=== PATIENT | female | born 1960 | race Caucasian/White ===

== ENCOUNTER 2016-06-03 21:04 | Inpatient (IN) | payer OTHER ==
[~2016-06-03] VITALS: Ht 170.2 cm; Wt 76.9 kg
--- NOTE | 2016-06-03 21:04 | NUR ---
Patient was BIBA at this time from [facility].
[2016-06-03 21:08] VITALS: BP 105/55
--- NOTE | 2016-06-03 21:15 | NUR ---
BIBA C/O SEIZURE AND ALOC , AND AN HOUR AGO, BS 148 MG /DL. UNABLE TO OBTAIN ANY HISTORY FROM PATIENT OR [facility]. [facility] STATE PT HAS HX OF COPD AND SEIZURES. PT WAS HAVING SEIZURES AT HALFWAY AND BROUGHT HERE. SEIZURE PRECAUTIONS IN PLACE. PT HAS LEFT KNEE AMPUTATION. PATIENT POSITIONED FOR COMFORT; HOB ELEVATED; BEDRAILS UP X2; BED DOWN. ER MD MADE AWARE OF PT STATUS.
--- NOTE | 2016-06-03 21:17 | NUR ---
Patient taken to bed 04 via gurney per EMS.
--- NOTE | 2016-06-03 21:37 | NUR ---
Dr. Damon evaluating patient at bedside.
--- NOTE | 2016-06-03 21:40 | NUR ---
RT at bedside/ LAB at bedside.
[2016-06-03] MEDS ORDERED: LORazepam 2 MG/ML VIAL ONE ×2 (21:41→22:26)
--- NOTE | 2016-06-03 21:45 | NUR ---
PT DESATS TO 65%, DR KAT WAS AT BEDSIDE. AIRWAY MAINTAINED THROUGH VENTILATION OF BAGGING SUPPORT. ATIVAN 2 MG IM WAS GIVEN. CENTRAL LINE ATTEMPT WAS MADE AND UNSUCCESSFULL. .
--- NOTE | 2016-06-03 22:00 | NUR ---
RT SIDE CHEST PIV STARTED AND INFUSING WITHOUT PROBLEMS.
[2016-06-03] MEDS ORDERED: LORazepam 2 MG/ML VIAL IM/IVP ONE (22:15)
--- NOTE | 2016-06-03 22:15 | NUR ---
2 MG IV ATIVAN GIVEN PER DR KAT
[2016-06-03] MEDS ORDERED: LORazepam 2 MG/ML VIAL IVP ONE (22:25)
--- NOTE | 2016-06-03 22:30 | NUR ---
SUCCINYL CHOLINE GIVEN, PT INTUBATED WITHOUT PROBLEMS.
--- NOTE | 2016-06-03 22:30 | NUR ---
PT INTUBATED WITH 7.5 AND MARKED AT 22 AT THE LIP
--- NOTE | 2016-06-03 22:30 | NUR ---
XRAY at bedside.
--- NOTE | 2016-06-03 22:45 | NUR ---
PT PLACE ON VENTILATOR
--- NOTE | 2016-06-03 23:01 | NUR ---
Patient going to CT via cassandra amador.
[2016-06-03] MEDS ORDERED: PHENobarbital 65 MG/ML VIAL IV ONE (23:10)
[2016-06-03] MEDS ORDERED: PHENobarbital 130 MG/ML VIAL ONE (23:45)
[2016-06-03] MEDS ORDERED: ONDANSETRON 4 MG/2 ML VIAL IVP PRN (23:50)
[2016-06-03] MEDS ORDERED: ACETAMINOPHEN 325 MG TAB PO PRN (23:50)
[2016-06-03] MEDS ORDERED: PHENobarbital 65 MG/ML VIAL ONE (23:51)
[2016-06-04] VITALS (23 sets, daily range): BP systolic 83–139; BP diastolic 44–87
[2016-06-04] MEDS ORDERED: LORazepam 2 MG/ML VIAL IVP PRN
[2016-06-04] MEDS ORDERED: NACL 0.9% 1,000 ML IV ONE (00:10)
--- NOTE | 2016-06-04 00:30 | NUR ---
CALLED OUTPT PHARMACY, PHENABARBITAL IVPB STARTING INFUSING OVER 30 MINUTES WITHOUT PROBLEMS.
[2016-06-04] MEDS: ALBUTEROL SULFATE/IPRATROPIU 3 ML SOL IH SCH ×4 (00:35→19:19)
--- NOTE | 2016-06-04 01:00 | NUR ---
INDWELLING RILEY PLACED
--- NOTE | 2016-06-04 01:35 | NUR ---
CURRENT VENTILATOR SETTINGS: ASSIST: 12/500, 5 PEEP.
--- NOTE | 2016-06-04 02:05 | NUR ---
Patient taken to ICU via gurney bassam amador/RN/RT.
--- NOTE | 2016-06-04 02:10 | NUR ---
RECEIVED PATIENT VIA GURNEY FROM ER. PATIENT IS SLEEPING IN BED. NO SIGNS OF RESPIRATORY DISTRESS OR SOB NOTED. PATIENT IS ETT TO VENT WITH SETTINGS OF FIO2 40%, TIDAL VOLUME 500, A/C 12, AND PEEP 5. BREATH SOUNDS ARE CLEAR UPON AUSCULTATION AND BOWEL SOUNDS ARE ACTIVE. THERE IS A #22 IN THE UPPER RIGHT CHEST RECEIVING NORMAL SALINE BOLUS. THERE IS A NGT IN THE PATIENT'S RIGHT NARES. THERE IS A RILEY CATHETER PRESENT DRAINING TO GRAVITY WITH MODERATE AMOUNT OF LIGHT COLOR SIXTO URINE NOTED. PATIENT'S LEFT LEG IS AMPUTATED BELOW THE KNEE. THERE IS A BRACE ON THE PATIENT'S RIGHT LEG. MRSA SWAB COLLECTED. HOB AT 30 DEGREES WITH BED IN LOW POSITION. CONTINUE TO MONITOR PATIENT. Addendum: 06/04/16 at 0258 by Ash Sanchez RN LEFT ABOVE THE KNEE AMPUTATION, NOT BELOW THE KNEE.
--- NOTE | 2016-06-04 02:10 | NUR ---
PT TRANSFERRED TO ICU 3 PLACED BACK ON VENT WITH SAME SETTINGS
[2016-06-04] MEDS: NACL 0.9% 1,000 ML IV SCH ×4 (02:31→20:47)
--- NOTE | 2016-06-04 02:45 | NUR ---
VENT CHECK, NO SXN REQUIRED AT THIS TIME, VENT SETTINGS AC12 VT 500 PEEP 5 FIO2 40% ALARMS ON AND FUNCTIONING PROPERLY AMBU BAG AT BEDSIDE PT IS INTUBATED WITH 7.5 ET TUBE SECURED WITH ANCHOR FAST AT 22 CM AND SKIN INTEGRITY IS INTACT
--- NOTE | 2016-06-04 03:50 | NUR ---
DR. JOSI LOPEZ ON UNIT TO SEE PATIENT.
--- NOTE | 2016-06-04 05:05 | NUR ---
VENT CHECK, SXN PT FOR C&S MODERATE AMT OF YELLOW SECRETIONS, CHANGED HME PT IS RESTING
--- NOTE | 2016-06-04 05:30 | NUR ---
PATIENT REPOSITIONED FOR COMFORT.
--- NOTE | 2016-06-04 05:32 | NUR ---
PATIENT ATTEMPTING TO PULL OUT ENDOTRACHEAL TUBE. PAGED DR. JOSI LOPEZ. WILL WAIT FOR CALL BACK.
--- NOTE | 2016-06-04 05:34 | NUR ---
SPOKE TO DR. JOSI LOPEZ REGARDING PATIENT ATTEMPTING TO PULL OUT ENDOTRACHEAL TUBE. DR. LOPEZ ORDERED TO PUT ON RESTRAINTS AND WILL PUT IN ORDERS FOR SEDATION. WILL FOLLOW UP WITH NEW ORDERS.
[2016-06-04] MEDS ORDERED: MIDAZOLAM MDV 50 MG in NACL 0.9% 40 ML IV PRN (05:45)
--- NOTE | 2016-06-04 06:03 | NUR ---
COMMERCIAL REVIEW APPRAISER AT BEDSIDE FOR SCHEDULED LAB DRAWS.
--- NOTE | 2016-06-04 06:28 | NUR ---
VENT CHECK, I\L TX GIVEN WITH DUONEB 3ML WITH NO ADVERSE REACTION POST TX B\S ARE CLEAR AND PT IS RESTING WITH NO SIGNS OF DISTRESS NOTED AT THIS TIME
[2016-06-04] MEDS: LEVOFLOXACIN 500 MG/D5W PREMIX 100 ML IV SCH (06:40)
--- NOTE | 2016-06-04 07:14 | NUR ---
PATIENT IN STABLE CONDITION. ENDORSED CONTINUITY OF CARE TO PATRICE MARTINEZ.
--- NOTE | 2016-06-04 07:15 | NUR ---
RECEIVED REPORT FROM MICHELLE MEADE AT PATIENT BEDSIDE. PT IS LETHARGIC, PERRL, NON-VERBAL, ETT TO VENT WITH FIO2 40%, TV 500, AC 12, PEEP 5, NO S/S OF ACUTE RESP DISTRESS NOTED AT THIS TIME, CLEAR LUNG SOUNDS. SR ON SWIMMING POOL INSTALLER, SOFT ABD WITH ACTIVE BOWL SOUNDS, NGT TO RIGHT NARES, CURRENTLY ON NPO, PLACEMENT CHECKED WITH 2 RNS, 0 RESIDUAL. PERIPHERAL LINE TO RIGHT UPPER CHEST, 22GA, RUNNING NS AT 120 ML/HR, RILEY CATHETER IN PLACE DRAINING CLEAR YELLOW URINE TO GRAVITY. AFEBRILE, SKIN IS WARM AND DRY TO TOUCH, OPEN WOUND TO SACRUM AREA (SEE WOUND PICTURES), LEFT AKA, AND RLE DVT NOTED. SEIZURE PRECAUTION, ASPIRATION PRECAUTION AND SAFETY PRECAUTIONS MAINTAINED, RESTRAINED TO BOTH ARMS ORDERED, ORAL CARE PROVIDED, PT TOLERATED WELL, VSS, WILL CONTINUE TO CLOSELY MONITOR.
--- NOTE | 2016-06-04 08:00 | NUR ---
NO CHANGE OF CONDITION AT THIS TIME, POSITION CHANGED FOR OFF LOAD PRESSURE. VSS.
--- NOTE | 2016-06-04 08:35 | NUR ---
PT IS SHAKING WITH EYES BLINKING, ATIVAN GIVEN ORDERED, SYMPTOM DECREASED.
--- NOTE | 2016-06-04 08:51 | NUR ---
RECEIVED PT 0N MARCUS ON A\C 12 VT500 PEEP5 FIO2 40 ALARMS ARE 0 Addendum: 06/04/16 at 0909 by Kellen Salvador RT ON AND FUNCTIONAL BMV HOB PTD ET TUBE SIZE 7.5 IS SECURE 22 CM LIP ANCHOR FAST IN PLACE BS CLEAR AIRWAY IS PATENT PT IN HF QUIET NO DISTRESS NOTED VENT PLUGGED INTO RED OUTLET RT HAND RESTRAINED
--- NOTE | 2016-06-04 10:00 | NUR ---
NO CHANGE OF CONDITION AT THIS TIME, POSITION CHANGED FOR OFF LOAD PRESSURE. VSS.
--- NOTE | 2016-06-04 10:50 | NUR ---
VENT CHECK BS DIMINISHED I\L LAVAGE AND SX SM YELLOW
--- NOTE | 2016-06-04 11:15 | NUR ---
DR. LOPEZ AND DR. GOMEZ CAME TO EVALUATE PT AT BEDSIDE.
[2016-06-04] MEDS ORDERED: LEVOTHYROXINE 0.112 MG TAB PO SCH (11:30)
[2016-06-04] MEDS ORDERED: BISACODYL 10 MG SUPP RC PRN (11:30)
[2016-06-04] MEDS ORDERED: MAGNESIUM OXIDE 400 MG TAB PO SCH (12:00)
--- NOTE | 2016-06-04 12:00 | NUR ---
NO CHANGE OF CONDITION AT THIS TIME, ORAL CARE PROVIDED, POSITION CHANGED FOR OFF LOAD PRESSURE. VSS
[2016-06-04] MEDS ORDERED: PANTOPRAZOLE 40 MG INJ VIAL IVP SCH (12:01)
--- NOTE | 2016-06-04 12:30 | NUR ---
X-RAY AT BEDSIDE, AND KUB DONE AT BEDSIDE.
[2016-06-04] MEDS ORDERED: MAGNESIUM OXIDE 400 MG TAB NG SCH (12:48)
--- NOTE | 2016-06-04 12:50 | NUR ---
PT IS HAVING SEIZURE WITH TREMOR ON BOTH ARM LASTED FOR 1 MIN, ATIVAN GIVEN, PT RELAXED, TREMOR SUBSIDE AFTER ATIVAN GIVEN, CONTINUE TO MONITOR. O2 AT 100%.
[2016-06-04] MEDS: LORazepam 2 MG/ML VIAL IVP PRN ×2 (12:55→22:21)
--- NOTE | 2016-06-04 13:06 | NUR ---
DR. MADISON NOTIFIED FOR NEURO CONSULT.
[2016-06-04] MEDS: PHENYTOIN 100 MG/4 ML UDC GT SCH ×2 (13:35→16:27)
--- NOTE | 2016-06-04 13:50 | NUR ---
PT IS HAVING SEIZURE WITH TREMOR, SAME LAST EPISODE, LASTED FOR 30 SEC, DILANTIN AND PHENOBARBITAL GIVEN, PT RELAXED, TREMOR SUBSIDE, O2 AT 100%, VSS. CONTINUE ON SAME SETTING OF VENTILATOR.
--- NOTE | 2016-06-04 14:15 | NUR ---
NO CHANGE OF CONDITION AT THIS TIME, POSITION CHANGED FOR OFF LOAD PRESSURE. VSS.
--- NOTE | 2016-06-04 15:00 | NUR ---
CRITICAL US VENOUS DOPP RESULT FOR LOWER EXTREMITY REPORTED TO DR. GOMEZ. HE SAID HE WILL COME TO SEE THE PATIENT.
[2016-06-04] MEDS ORDERED: VITAMIN C500 MG/5 M NG (15:04)
[2016-06-04] MEDS ORDERED: TYLENOL650 MG RC (15:09)
[2016-06-04] MEDS ORDERED: DULCOLAX10 M2 RC (15:11)
[2016-06-04] MEDS ORDERED: LASIX40 MG PO (15:12)
[2016-06-04] MEDS ORDERED: FERROUS SULFAT325 MG PO (15:12)
[2016-06-04] MEDS ORDERED: NEURONTIN300 MG PO (15:13)
[2016-06-04] MEDS ORDERED: NORCO 5/325 MG1 TAB PO (15:14)
[2016-06-04] MEDS ORDERED: SYNTHROID0.125 MG PO (15:15)
[2016-06-04] MEDS ORDERED: MELATONIN3 MG PO (15:16)
[2016-06-04] MEDS ORDERED: REMERON15 MG PO (15:17)
[2016-06-04] MEDS ORDERED: SINGULAIR10 MG PO (15:18)
[2016-06-04] MEDS ORDERED: MS-CONTIN30 MG PO (15:20)
[2016-06-04] MEDS ORDERED: MULTI-VITAMINS1 TAB PO (15:20)
[2016-06-04] MEDS ORDERED: PRILOSEC OTC20 MG PO (15:21)
[2016-06-04] MEDS ORDERED: DILANTIN100 MG PO (15:22)
--- NOTE | 2016-06-04 15:22 | NUR ---
VENT CHECK BS CLEAR AIRWAY IS PATENT
[2016-06-04] MEDS ORDERED: VITAMIN C500 M8 PO (15:26)
--- NOTE | 2016-06-04 16:00 | NUR ---
POSITION CHANGED FOR OFF LOAD PRESSURE, PM CARE PROVIDED, ORAL CARE PROVIDED, PT IS IN STABLE CONDITION AT THIS TIME. VSS.
[2016-06-04] MEDS: MORPHINE SULFATE 2 MG/ML SYR IVP PRN (16:27)
--- NOTE | 2016-06-04 18:00 | NUR ---
NO CHANGE OF CONDITION AT THIS TIME, POSITION CHANGED FOR OFF LOAD PRESSURE. VSS.
--- NOTE | 2016-06-04 19:15 | NUR ---
REPORT GIVEN TO MICHELLE EVANS FOR CONTINUITY OF CARE. PT IS IN STABLE CONDITION, VSS. AT THIS TIME.
--- NOTE | 2016-06-04 19:19 | NUR ---
RECEIVED ON [employer] R 860 VENTILATOR PLUGGED INTO RED OUTLET TOLERATING WELL WITHOUT ADVERSE REACTIONS NOTED TO AN ENDOTRACHEAL TUBE 7.5 SECURED AT 22cm MIDLINE WIT AN ANCHOR FAST CUFF PRESSURE CHECKED FOR MOV AMBU BAG NOTED AT HOB LOC ASLEEP BREATH SOUNDS RHONCHI BILATERAL WITH GOOD CHEST RISE ENDOTRACHEAL SUCTION FOR LARGE THIN YELLOW SECRETIONS AIRWAY PATENT
--- NOTE | 2016-06-04 19:20 | NUR ---
RECEIVED PATIENT VIA GURNEY FROM ER. PATIENT IS SLEEPING IN BED. NO SIGNS OF RESPIRATORY DISTRESS OR SOB NOTED. PATIENT IS ETT TO VENT WITH SETTINGS OF FIO2 40%, TIDAL VOLUME 500, A/C 12, AND PEEP 5. RHONCHI HEARD UPON AUSCULTATION AND BOWEL SOUNDS ARE ACTIVE. VITALS ARE WNL. THERE IS A #22 IN THE UPPER RIGHT CHEST RECEIVING NORMAL SALINE AT 120 ML/HR. THERE IS A NGT IN THE PATIENT'S RIGHT NARES. THERE IS A RILEY CATHETER PRESENT DRAINING TO GRAVITY WITH MODERATE AMOUNT OF YELLOW COLOR URINE NOTED. PATIENT'S LEFT LEG IS AMPUTATED ABOVE THE KNEE. RESPIRATORY THERAPIST AT BEDSIDE. HOB AT 30 DEGREES WITH BED IN LOW POSITION. CONTINUE TO MONITOR PATIENT
--- NOTE | 2016-06-04 20:13 | NUR ---
DR. VIDAL PRESENT ON UNIT TO SEE PATIENT.
[2016-06-04] MEDS ORDERED: HEPARIN PER PHARMACY MC PRN (20:20)
[2016-06-04] MEDS ORDERED: hePARIN / DEXT 5% PREMIX 250 ML IV SCH (20:20)
[2016-06-04] MEDS ORDERED: LORazepam 2 MG/ML VIAL IVP SCH (20:25)
--- NOTE | 2016-06-04 20:33 | NUR ---
DR. JOSI LOPEZ AT BEDSIDE TO EXPLAIN INDICATIONS AND BENEFITS FOR CENTRAL LINE INSERTION. PATIENT REFUSED CENTRAL LINE INSERTION AT THIS TIME. PATIENT NOTICEABLE AGITATED AND ANXIOUS.
--- NOTE | 2016-06-04 20:36 | NUR ---
DR. JOSI LOPEZ ORDERED 1MG IVP ONE TIME TO BE GIVEN NOW FOR ANXIETY. ADMINISTERED ATIVAN IMG IVP PER DR. LOPEZ'S ORDERS. CONTINUE TO MONITOR PATIENT.
[2016-06-04] MEDS: MONTELUKAST SODIUM 10 MG TAB NG SCH (21:22)
[2016-06-04] MEDS: MIRTAZAPINE 15 MG TAB NG SCH (21:22)
[2016-06-04] MEDS: MAGNESIUM OXIDE 400 MG TAB NG SCH (21:22)
--- NOTE | 2016-06-04 21:27 | NUR ---
PATIENT REPOSITIONED FOR COMFORT. CONTINUE TO MONITOR.
--- NOTE | 2016-06-04 21:44 | NUR ---
IRRITABLE ON OCCASION BREATH SOUNDS CLEAR BILATERAL WITH GOOD AERATION THROUGHOUT
--- NOTE | 2016-06-04 23:34 | NUR ---
ASLEEP NO EVIDENCE OF RESPIRATORY DISTRESS NOTED BREATH SOUNDS C;EAR BI;ATERAL WITH GOOD AERATION THROUGHOUT AIRWAY PATENT
[2016-06-05] VITALS (107 sets, daily range): BP systolic 90–167; BP diastolic 41–97
--- NOTE | 2016-06-05 | NUR ---
PROPOFOL DRIP INITIATED AT 0.3MCG/KG/MIN FOR RASS -3 FOR MODERATE SEDATION. CONTINUE TO MONITOR.
--- NOTE | 2016-06-05 00:06 | NUR ---
PATIENT REPOSITIONED FOR COMFORT. NO S/S OF SOB NOTED. CONTINUE TO MONITOR PATIENT.
--- NOTE | 2016-06-05 00:12 | NUR ---
SOFT WRIST RESTRAINTS REMOVED. CHARGE NURSE SHAKIR RN IS AWARE. CONTINUE TO MONITOR PATIENT.
[2016-06-05] MEDS: MORPHINE SULFATE 2 MG/ML SYR IVP PRN (00:39)
[2016-06-05] MEDS: ALBUTEROL SULFATE/IPRATROPIU 3 ML SOL IH SCH ×4 (01:28→19:24)
--- NOTE | 2016-06-05 01:28 | NUR ---
RESPIRATORY THERAPIST AT BEDSIDE TO ADMINISTER SCHEDULED BREATHING TX. PATIENT IS ATTEMPTING TO PULL OUT NGT AND ETT TUBES. SOFT WRIST RESTRAINTS REAPPLIED. CHARGE NURSE SHAKIR RN MADE AWARE. CONTINUE TO MONITOR.
--- NOTE | 2016-06-05 01:28 | NUR ---
IRRITABLE BREATH SOUNDS CLEAR BILATERAL GOOD CHEST RISE SATURATION 100% ON FIO2 OF 40% POST HHN THERAPY TITRATED FIO2 TO 35% NERA/RN NOTIFIED
--- NOTE | 2016-06-05 03:23 | NUR ---
NO DISTRESS NOTED GOOD CHEST RISE
--- NOTE | 2016-06-05 04:52 | NUR ---
MORNING CARE RENDERED. BED BATH PROVIDED. CHANGED LINENS AND GOWN. PATIENT REPOSITIONED FOR COMFORT. HOB AT 30 DEGREES WITH BED IN LOW POSITION. CONTINUE TO MONITOR PATIENT.
[2016-06-05] MEDS: NACL 0.9% 1,000 ML IV SCH ×4 (05:15→23:26)
--- NOTE | 2016-06-05 05:23 | NUR ---
VAP ORAL CARE RENDERED. NO SIGNS OF SOB NOTED. HOB AT 30 DEGREES WITH BED IN LOW POSITION. CONTINUE TO MONITOR PATIENT.
--- NOTE | 2016-06-05 05:38 | NUR ---
NO SOB NOTED GOOD CHEST RISE
[2016-06-05] MEDS: LEVOTHYROXINE 0.112 MG TAB NG SCH (05:44)
--- NOTE | 2016-06-05 05:45 | NUR ---
SATURATION 100% ON FIO2 OF 35% TITRATED FIO2 TO 30% NERA/RN AWARE
[2016-06-05] MEDS: PROPOFOL 1000 MG/100 ML PREMIX 100 ML IV PRN ×5 (05:58→20:40)
[2016-06-05] MEDS: LEVOFLOXACIN 500 MG/D5W PREMIX 100 ML IV SCH (06:28)
--- NOTE | 2016-06-05 06:47 | NUR ---
REC'D PT ON CARESCAPE VENT SETTINGS AC12 VT500 PEEP 5 FIO2 30% ALARMS ON AND FUNCTIONING PROPERLY, AMBU BAG AT SIDE OF VENTILATOR, VENTILATOR IS PLUGGED INTO RED OUTLET, I\L TX GIVEN WITH DUONEB 3ML WITH NO ADVERSE REACTION POST TX, SXN PT MODERATE AMT OF THIN YELLOW SECRETIONS, B\S ARE CLEAR AND PT IS ORALLY INTUBATED WITH ET TUBE 7.5 SECURED WITH ANCHOR FAST AT 22 CM AT MIDLINE OF MOUTH AND SKIN INTEGRITY IS INTACT
--- NOTE | 2016-06-05 07:19 | NUR ---
PATIENT IN STABLE CONDITION. NO SIGNS OF DISTRESS NOTED. ALL NEEDS ATTENDED TO DURING SHIFT. ENDORSED CONTINUITY OF CARE MONI MARTINEZ.
--- NOTE | 2016-06-05 07:22 | NUR ---
RECEIVED REPORT FROM MICHELLE EVANS. NO SIGNS OF ACUTE DISTRESS AT THIS TIME, FLACC 0. PT IS SEDATED .PT IS ETT TO VENT. FIO2: 30%, AC: 12, TV: 500, PEEP: 5. IV TO RIGHT CHEST #22, PATENT AND INTACT. PT IS ON PROPOFOL AT 40 MCG/KG/MIN. RASS -3. NGT TO RIGHT NARE, CLAMPED. RILEY CATHETER IN PLACE DRAINING TO GRAVITY DRAINAGE BAG. WOUND NOTED TO SACRUM. PT HAS LEFT AKA AND BOOT TO RIGHT LOWER EXTREMITY. PT IS ON SEIZURE PRECAUTIONS WITH BED IN LOWEST POSITION AND SIDE RAILS UP, PADDED. PT IS CURRENTLY SINUS RHYTHM ON THE MONITOR. SOFT MITTENS AND SOFT RESTRAINTS IN PLACE TO BILATERAL UPPER EXTREMITIES X2. WILL CONTINUE TO MONITOR.
--- NOTE | 2016-06-05 07:28 | NUR ---
PATIENT HAS BEEN SCREENED AND CATEGORIZED HIGH NUTRITION RISK. PATIENT WILL BE SEEN WITHIN 1-2 DAYS OF ADMISSION. 06/04/16-06/05/[address]
[2016-06-05] MEDS: LORazepam 2 MG/ML VIAL IVP PRN (07:41)
--- NOTE | 2016-06-05 07:48 | NUR ---
PT AGITATED, ADMINISTERED ATIVAN PRN ORDERED. WILL CONTINUE TO MONITOR.
[2016-06-05] MEDS ORDERED: PROBIOTIC SCREEN 1 EA MISC MC PRN (08:15)
--- NOTE | 2016-06-05 08:16 | NUR ---
DR. MADISON IN TO SEE PT. WILL FOLLOW UP ON ORDERS.
[2016-06-05] MEDS: PHENYTOIN 100 MG/4 ML UDC GT SCH ×3 (08:29→17:25)
[2016-06-05] MEDS: MAGNESIUM OXIDE 400 MG TAB NG SCH (08:30)
[2016-06-05] MEDS: GABAPENTIN 300 MG CAP NG SCH ×3 (08:30→17:26)
[2016-06-05] MEDS: PANTOPRAZOLE 40 MG INJ VIAL IVP SCH (08:30)
--- NOTE | 2016-06-05 08:42 | NUR ---
PT TOLERATED MEDS WELL.
[2016-06-05] MEDS ORDERED: SUCCINYLCHOLINE CHLORIDE 200 MG/10 ML VIAL IVP ONE (09:15)
[2016-06-05] MEDS ORDERED: INTUBATION KIT MC ONE (09:15)
--- NOTE | 2016-06-05 09:19 | NUR ---
VENT CHECK, NO SXN NEEDED AT THIS TIME, AIRWAY IS PATENT AND PT IS SEDATED WITH MITTENS AND RESTRAINS ON BOTH HANDS, NO SIGNS OF DISTRESS NOTED AT THIS TIME
--- NOTE | 2016-06-05 09:54 | NUR ---
DR. MROENO IN TO SEE PT. WILL FOLLOW UP ON ORDERS.
--- NOTE | 2016-06-05 10:47 | NUR ---
TECH PRESENT AT BEDSIDE PERFORMING EEG.
--- NOTE | 2016-06-05 10:51 | NUR ---
VENT CHECK, SXN PT LARGE AMT OF YELLOW SECRETIONS PT IS AGITATED AND GETTING READY TO HAVE EEG DONE .
--- NOTE | 2016-06-05 11:15 | NUR ---
FAXED INITIAL REVIEW TO KAREN JOHANSEN [phone] PHONE [phone] FAXED INITIAL REVIEW TO [facility] [phone] PHONE CHARLIE DELGADO [phone]
--- NOTE | 2016-06-05 12:19 | NUR ---
06/05/16 RD INITIAL ASSESSMENT COMPLETED PLEASE REFER TO NUTRITION ASSESSMENT UNDER CARE ACTIVITY FOR ESTIMATED NUTRITIONAL NEEDS. RD RECOMMENDATIONS: 1. CONTINUE NPO MEDICALLY APPROPRIATE PER MD 2. WHEN MEDICALLY APPROPRIATE CONSIDER BEGIN NUTRITION SUPPORT NUTREN PULMONARY AT 15 ML/HR AND ADVANCE 10 ML Q6H TOLERATED TO GOAL OF 55 ML/HR --AT GOAL OF 55 ML/HR, THIS WILL PROVIDE 1320 ML TOTAL VOLUME, 1980 KCAL, 90 GM PROTEIN AND MEET 100% OF PT ESTIMATED KCAL AND PROTEIN NEEDS 3. SHOULD PT BE WEANED OFF OF VENT, CONSIDER ADVANCE DIET SLOWLY AND TOLERATED TO REGULAR. 4. RD WILL F/U 2-3 DAYS; HIGH RISK. THAI ANDRE RD
--- NOTE | 2016-06-05 13:20 | NUR ---
VENT CHECK, I\L TX GIVEN WITH DUONEB 3ML WITH NO ADVERSE REACTION POST TX B\S ARE CLEAR AND SXN PT SMALL AMT OF YELLOW SECRETIONS
--- NOTE | 2016-06-05 13:43 | NUR ---
PT TOLERATED MEDS WELL.
--- NOTE | 2016-06-05 15:01 | NUR ---
VENT CHECK, SXN PT SMALL AMT OF YELLOW SECRETIONS, B\S ARE CLEAR AND PT IS SLEEPING
--- NOTE | 2016-06-05 16:49 | NUR ---
CHECKED ON PT. NO SIGNS OF ACUTE DISTRESS AT THIS TIME, FLACC 0. WILL CONTINUE TO MONITOR.
--- NOTE | 2016-06-05 16:58 | NUR ---
VENT CHECK, NO SXN REQUIRED AT THIS TIME, B\S ARE CLEAR AND PT IS SLEEPING WITH NO SIGNS OF DISTRESS NOTED AT THIS TIME
--- NOTE | 2016-06-05 17:40 | NUR ---
PT TOLERATED MEDS WELL.
--- NOTE | 2016-06-05 18:00 | NUR ---
DR. ROLLINS IN TO SEE PT. WILL FOLLOW UP ON ORDERS.
--- NOTE | 2016-06-05 19:32 | NUR ---
ENDORSED CARE TO MICHELLE TROTTER. PT IN STABLE CONDITION.
--- NOTE | 2016-06-05 19:33 | NUR ---
RECEIVED REPORT LAURE MONTENEGRO RN. INITIAL ASSESSMENT COMPLETED. PT IS ON ETT TO VENT WITH VENT SETTING ORDERED. NGT TO RIGHT NARE, PATENT, INTACT. IV ACCESS AT RIGHT CHEST 22G, PATENT, INTACT. WITH BUE SOFT WRIST RESTRAINTS ORDERED, LEFT AKA, WITH BOOTS AT RIGHT LEG. RILEY CATH IN PLACE. BED IN LOW POSITION, SAFETY MEASURE ENSURE. CONTACT ISOLATION MAINTAINED.
[2016-06-05] MEDS: MONTELUKAST SODIUM 10 MG TAB NG SCH (20:57)
[2016-06-05] MEDS: MIRTAZAPINE 15 MG TAB NG SCH (20:57)
--- NOTE | 2016-06-05 21:10 | NUR ---
DUE MEDS GIVEN ORDERED. WILL CONTINUE TO MONIOTR.
[2016-06-06] VITALS (106 sets, daily range): BP systolic 72–133; BP diastolic 27–79
--- NOTE | 2016-06-06 00:45 | NUR ---
NGT FEEDING STARTED WITH SETTING ORDERED, IN PLACE, NO RESIDUAL AT THIS TIME. WILL CONTINUE TO [id number].
[2016-06-06] MEDS: PROPOFOL 1000 MG/100 ML PREMIX 100 ML IV PRN ×5 (00:53→19:47)
[2016-06-06] MEDS: ALBUTEROL SULFATE/IPRATROPIU 3 ML SOL IH SCH ×4 (01:31→19:39)
[2016-06-06] MEDS: ACETAMINOPHEN 650 MG/20.3 ML UDC PO PRN (02:40)
--- NOTE | 2016-06-06 02:40 | NUR ---
PT FEBRILE T 100.5, TYLENOL GIVEN ORDERED. COOLING MEASURES APPLIED. WILL CONTINUE TO MONITOR.
--- NOTE | 2016-06-06 04:00 | NUR ---
T= 99.2. WILL CONTINUE TO MONITOR.
--- NOTE | 2016-06-06 05:30 | NUR ---
MORNING CARE DONE. PT TOLERATED WELL. NO SOB/NO SIGNS OF DISTRESS AT THIS TIME.
[2016-06-06] MEDS: LEVOFLOXACIN 500 MG/D5W PREMIX 100 ML IV SCH (06:24)
[2016-06-06] MEDS: LEVOTHYROXINE 0.112 MG TAB NG SCH (06:24)
--- NOTE | 2016-06-06 06:52 | NUR ---
RECEIVED PT ON CARESCAPE ON A\C 12 VT500 PEEP5 FIO2 30 ALARMS ARE ON AND FUNCTIONAL PTS ET TUBE SIZE 7.5 IS SECURE [address] FAST IN PLACE BS CLEAR PT IN HF ASLEEP PT HANDS RESTRAINED BMV HOB I\L HHN GIVEN WITH 3 MG DUONEB VENT PLUGGED INTO RED OUTLET
--- NOTE | 2016-06-06 06:55 | NUR ---
DR. LANZA AT BEDSIDE. DR. LANZA AWARE OF LAB RESULTS. NO ORDERS AT THIS TIME.
[2016-06-06] MEDS ORDERED: POTASSIUM CHLORIDE 10 MEQ TABER PO ONE (07:00)
--- NOTE | 2016-06-06 07:14 | NUR ---
CALLED DR. ROLLINS, AWARE OF THE LAB RESULTS. HE SAID HE WILL PUT IN ORDERS. REPORT GIVEN TO MICHELLE MONTENEGRO FOR CONTINUITY OF CARE.
--- NOTE | 2016-06-06 07:18 | NUR ---
RECEIVED REPORT FROM MICHELLE TROTTER. NO SIGNS OF ACUTE DISTRESS AT THIS TIME, FLACC 0. PT IS SEDATED. IV TO RIGHT CHEST #22, PATENT AND INTACT. PT IS ON PROPOFOL DRIP AT 40 MCG/KG/MIN. NGT TO RIGHT NARE TO TUBE FEEDING IN PLACE AND SECURED. PT IS ETT TO VENT. FIO2: 30%, AC: 12, TV: 500, PEEP: 5. PT HAS LEFT AKA, BOOT TO RIGHT LOWER EXTREMITY. WOUND TO SACRUM NOTED. PT IS ON BILATERAL SOFT WRIST RESTRAINTS WITH MITTENS IN PLACE. PT IS CURRENTLY SINUS RHYTHM ON THE MONITOR. PT IS ON CONTACT ISOLATION WITH SIGNS POSTED. SAFETY PRECAUTIONS IN PLACE WITH BED IN LOWEST POSITION AND SIDE RAILS UP. CALL LIGHT WITHIN REACH. WILL CONTINUE TO MONITOR.
[2016-06-06] MEDS ORDERED: POTASSIUM CHLORIDE 20% 40 MEQ/15 ML UDC NG SCH (07:30)
[2016-06-06] MEDS ORDERED: MAG SULF 2000 MG/WATER PREMIX 50 ML IV SCH (08:00)
--- NOTE | 2016-06-06 08:01 | NUR ---
DR. MADISON IN TO SEE PT. WILL FOLLOW UP ON ORDERS.
[2016-06-06] MEDS ORDERED: MAGNESIUM OXIDE 400 MG TAB GT SCH (08:30)
[2016-06-06] MEDS: LACTOBACILLUS RHAMNOSUS GG 1 EACH CAP PO SCH (08:48)
[2016-06-06] MEDS: GABAPENTIN 300 MG CAP NG SCH ×3 (08:48→16:52)
[2016-06-06] MEDS: PANTOPRAZOLE 40 MG INJ VIAL IVP SCH (08:48)
[2016-06-06] MEDS: PHENYTOIN 100 MG/4 ML UDC GT SCH ×3 (08:48→16:51)
[2016-06-06] MEDS: NACL 0.9% 1,000 ML IV SCH ×3 (08:49→17:54)
[2016-06-06] MEDS ORDERED: PHENYTOIN IV ONE (08:50)
[2016-06-06] MEDS ORDERED: NACL 0.9% IV ONE (08:50)
--- NOTE | 2016-06-06 09:06 | NUR ---
VENT CHECK BS CLEAR AIRWAY IS PATENT
--- NOTE | 2016-06-06 09:09 | NUR ---
CHECKED TUBE FEEDING RESIDUAL: NONE NOTED. ADMINISTERED MEDICATION ORDERED. PT TOLERATED WELL. HEPARIN HELD PER DR. ROLLINS.
--- NOTE | 2016-06-06 09:52 | NUR ---
DR. MORENO IN TO SEE PT. WILL FOLLOW UP ON ORDERS.
--- NOTE | 2016-06-06 10:30 | NUR ---
WOUND CARE EVALUATION NOTES: REASON FOR EVALUATION: DECUBITUS ULCER SACRAL COMPLETE SKIN ASSESSMENT DONE ON THIS 55 Y/O FEMALE PATIENT [facility], WITH INITIAL DIAGNOSIS OF S/P EPILEPTICUS. PAST MEDICAL HISTORY INCLUDE SEIZURE DISORDER, HYPOTHYROIDISM, CVA WITH RIGHT HEMIPARESIS, PERIPHERAL NEUROPATHY AND PERIPHERAL VASCULAR DISEASE. ALL ABOVE INFORMATION WAS OBTAINED FROM THE ADMISSION H&P. LABS ARE WBC 8.2, H/H 10.1/30.6, GLUCOSE 139, ALBUMIN 3.8, PT/INR 10.1/1.1 AND PTT 26.6. CURRENT MEDS INCLUDE HEPARIN, ATIVAN, LEVOFLOXACIN AND MORPHINE. PATIENT IS AWAKE, CONFUSED, BUT ABLE TO FOLLOW SIMPLE COMMANDS. ON ETT TO VENT. FC 14FR PATENT AND INTACT TO SIXTO COLORED URINE IN MODERATE AMOUNT. SKIN WARM TO TOUCH WNL, TOENAILS ARE THICKENED, NO EDEMA, NO HAIR GROWTH, DRY AND FLAKY SKIN AND FAINT PEDAL PULSE ON THE RIGHT. LEFT AKA WITH SCARRING NOTED. NEEDS ASSISTANCE IN TURNING. INITIAL PLAN OF CARE AND PRESSURE PREVENTIVE MEASURES DISCUSSED, ABLE TO DEMONSTRATE UNDERSTANDING BY NODDING HER HEAD. INTEGUMENTARY: SACRALCOCCYX - ST IV - 20% THIN YELLOW AND 80% PALE RED. PW RED. RLE - VENOUS STASIS DERMATITIS - DRY AND FLAKY RIGHT ALL TOES - FUNGAL LIKE TOENAILS BUE - ECCHYMOSIS - SCATTERED PURPLE RECOMMENDATIONS: -CLEANSE SACRALCOCCYX WITH WOUND CLEANSER, PAT DRY, APPLY THERAHONEY GEL, COVER WITH GAUZE AND DRY DRESSING Q DAY AND PRN WITH SOILING/DISPLACEMENT. -CLEANSE RLE WITH MILD SOAP AND WATER, PAT DRY, APPLY ANTIFUNGAL CLEAR OINT BIDWC AND LEAVE OPEN TO AIR --TURN AND REPOSITION PATIENT Q2H TO LEFT AND RIGHT SIDE ONLY TO OFFLOAD SACRALCOCCYX -ASSESS AND MONITOR SKIN CONDITION DURING POSITION CHANGE, PLEASE PAY PARTICULAR ATTENTION TO SACRALCOCCYX, ELBOWS AND HEELS -OFFLOAD BILATERAL HEELS BY PLACING PILLOWS UNDER CALVES AT ALL TIMES, UNLESS OTHERWISE CONTRAINDICATED -PRESSURE REDISTRIBUTION SURFACE THERAPY -SURGICAL CONSULT IF OK WITH PMD -PODIATRY CONSULT IF OK WITH PMD -KEEP SKIN CLEAN AND DRY AT ALL TIMES. RECOMMENDATIONS DISCUSSED WITH PRIMARY RN AND RESIDENT PHYSICIANS, DR. ROLLINS AND DR. HEBERT. WILL FOLLOW UP PATIENT Q 7 DAYS AND PRN. PLEASE CONTACT [facility] FOR ANY CONCERNS, QUESTIONS AND CHANGES IN SKIN CONDITION.
--- NOTE | 2016-06-06 10:43 | NUR ---
VENT CHECK BS RHONCI I\L LAVAGE AND SX MOD THICK YELLOW
--- NOTE | 2016-06-06 10:47 | NUR ---
PRE SCHOOL TEACHERRICKEY, PRESENT AT BEDSIDE FOR EVAL.
--- NOTE | 2016-06-06 11:06 | NUR ---
CHECKED ON PT. FLACC 2. CHECKED BP: 117/67, ADMINISTERED MORPHINE ORDERED FOR PRN PAIN. PT TOLERATED WELL, WILL REASSESS.
[2016-06-06] MEDS: MORPHINE SULFATE 2 MG/ML SYR IVP PRN (11:07)
[2016-06-06] MEDS ORDERED: HYDRAGUARD CREAM TP PRN (11:25)
[2016-06-06] MEDS: CHLORHEXADINE GLUC 2% CLOTH TP SCH (11:55)
--- NOTE | 2016-06-06 12:25 | NUR ---
ENDORSED CARE TO MICHELLE MATA. PT IN STABLE CONDITION.
--- NOTE | 2016-06-06 13:01 | NUR ---
REASSUMED PT CARE.
--- NOTE | 2016-06-06 13:04 | NUR ---
VENT CHECK BS CLEAR AIRWAY IS PATENT HHN GIVEN I\L WITH 3MG DUONEB
--- NOTE | 2016-06-06 13:06 | NUR ---
INCREASED TUBE FEEDING TO 25 ML/HR WITH GOAL OF 55 ML ORDERED. WILL CONTINUE TO MONITOR.
[2016-06-06] MEDS: HYDRAGUARD CREAM TP SCH (13:24)
--- NOTE | 2016-06-06 13:42 | NUR ---
CHECKED TUBE FEEDING RESIDUAL: NONE NOTED. ADMINISTERED MEDICATION ORDERED. PT TOLERATED WELL.
--- NOTE | 2016-06-06 14:17 | NUR ---
CHECKED ON PT. NO SIGNS OF ACUTE DISTRESS AT THIS TIME, FLACC 0. WILL CONTINUE TO MONITOR.
--- NOTE | 2016-06-06 14:23 | NUR ---
FAXED CONCURRENT REVIEW TO [facility] [phone] PONE [phone] CHARLIE FAXED CONCURRENT REVIEW TO KAREN HERNANDEZ [phone] PHONE [phone]
--- NOTE | 2016-06-06 15:24 | NUR ---
VENT CHECK BS RHONCI I\L LAVAGE AND SX COPIUOS YELLOW
[2016-06-06] MEDS ORDERED: VANCOMYCIN PER PHARMACY MC PRN (16:50)
--- NOTE | 2016-06-06 17:02 | NUR ---
DR. MCHUGH IN TO SEE PT. WILL FOLLOW UP ON ORDERS.
--- NOTE | 2016-06-06 17:46 | NUR ---
DECREASED PROPOFOL DRIP TO 30 MCG/KG/MIN. PER DR. MCHUGH, PT TO BE WEANED FOR SEDATION VACATION TOMORROW AM.
[2016-06-06] MEDS: VANCOMYCIN 750 MG in DEXTROSE 5% 250 ML IV SCH (18:10)
--- NOTE | 2016-06-06 18:22 | NUR ---
PT TOLERATED MEDS WELL.
--- NOTE | 2016-06-06 18:33 | NUR ---
DR. CAMACHO IN TO SEE PT. WILL FOLLOW UP ON ORDERS.
[2016-06-06] MEDS ORDERED: FLUOCINONIDE 0.05% OINT 30 GM TUBE TP SCH (18:35)
--- NOTE | 2016-06-06 20:00 | NUR ---
PATIENT SEDATED, ON PROPOFOL DRIP, RASS -3, SR ON THE MONITOR, ETT TO VENT, NOTED WITH YELLOW CREAM SECRETIONS UPON SUCTIONING, NGT TO RIGHT NARE, FEEDING TOLERATED WELL, NO RESIDUAL OBTAINED, HOB AT 30 DEGREES ELEVATION, TURNED AND REPOSITIONED, IV ON RIGHT CHEST G#22 PATEN AND INTACT, FLACC 0.
[2016-06-06] MEDS: MIRTAZAPINE 15 MG TAB NG SCH (20:04)
[2016-06-06] MEDS: MEROPENEM 1,000 MG in NACL 0.9% 100 ML IV SCH (20:04)
[2016-06-06] MEDS: MONTELUKAST SODIUM 10 MG TAB NG SCH (20:04)
[2016-06-06] MEDS: CLOTRIMAZOLE 1% 30 GM CRM TUBE TP SCH ×2 (20:06→20:40)
[2016-06-06] MEDS: MUPIROCIN 2% OINT 22 GM TUBE TP SCH (20:06)
[2016-06-06] MEDS: BETAMETHASONE TP SCH (20:06)
[2016-06-06] MEDS: CLOTRIMAZOLE TP SCH (20:06)
--- NOTE | 2016-06-06 22:00 | NUR ---
RESTING COMFORTABLY, CONTINUE TO MONITOR VITAL SIGNS. NO DISTRESS NOTED.
[2016-06-07] VITALS (39 sets, daily range): BP systolic 75–153; BP diastolic 39–71
--- NOTE | 2016-06-07 | NUR ---
PATIENT SUCTIONED WITH THICK YELLOW GREEN SECRETION, RIGHT LEG FOOT AND TOES APPLIED WITH LOTRISONE CREAM ORDERED, TURNED AND REPOSITIONED, REMAINS WITH LEFT SOFT WRIST RESTRAINT TO PREVENT FROM PULLING OUT ETT, NGT.
[2016-06-07] MEDS: HYDRAGUARD CREAM TP SCH ×2 (00:58→13:09)
[2016-06-07] MEDS: VANCOMYCIN 750 MG in DEXTROSE 5% 250 ML IV SCH ×3 (01:38→17:04)
[2016-06-07] MEDS: ALBUTEROL SULFATE/IPRATROPIU 3 ML SOL IH SCH ×4 (01:45→19:25)
--- NOTE | 2016-06-07 02:20 | NUR ---
PATIENT RESTING WELL, PROPOFOL REMAINS AT 30 MCG/KG/MIN, NO SOB, FLACC 0.
[2016-06-07] MEDS: PROPOFOL 1000 MG/100 ML PREMIX 100 ML IV PRN (03:23)
--- NOTE | 2016-06-07 04:00 | NUR ---
GT FEEDING RATE INCREASED TO 40 ML/HR FROM 35 ML/HR AT THIS TIME.
--- NOTE | 2016-06-07 04:23 | NUR ---
SUCTIONED WITH YELLOW GREEN SECRETIONS, ORAL CARE WITH VAP KIT PROVIDED, GT FEEDING CONTINUE, TURNED AND REPOSITIONED, FLACC 0, PROPOFOL DRIP DECREASED TO 25 MCG/KG/MIN AT 0400.
[2016-06-07] MEDS: MEROPENEM 1,000 MG in NACL 0.9% 100 ML IV SCH ×3 (04:57→21:01)
[2016-06-07] MEDS: NACL 0.9% 1,000 ML IV SCH ×3 (06:04→19:15)
[2016-06-07] MEDS: LEVOTHYROXINE 0.112 MG TAB NG SCH (06:05)
[2016-06-07] MEDS: LEVOFLOXACIN 500 MG/D5W PREMIX 100 ML IV SCH (06:05)
--- NOTE | 2016-06-07 06:35 | NUR ---
RECIVED PT ON VENT WITH SETTINGS CHARTED BREATH SOUNDS PRESENT BILAT CLEAR PT AWAKE ALERT SXN PT WITH MIN AMT OFF WHITE SECS SEDATION VACATION STOPPED 634 BY MICHELLE MASSEY VENT PLUGGED INTO RED OUTLET AMBU BAG AT BEDSIDE
--- NOTE | 2016-06-07 06:40 | NUR ---
PROPOFOL OFF AT THIS TIME, RESPIRATORY THERAPIST BILL AT BEDSIDE GIVING INSTRUCTIONS TO THE PATIENT ON WEANING HER OFF FROM THE VENT, PATIENT NODDED WHEN ASKED IF SHE UNDERSTOOD INSTRUCTIONS. GT FEEDING AT 40 ML/HR, TOLERATING WELL, DENIES PAIN.
--- NOTE | 2016-06-07 07:30 | NUR ---
RECEIVED PT FROM BRYSON MARTINEZ. PT AWAKE, ON CPAP AT THIS TIME. BEDSIDE MONITOR SHOWS SR. NO S/S OF RESPIRATORY DISTRESS NOTED. LUNGS SOUND RHONCHI UPON AUSCULTATION. PT HAS NG TUBE FEEDING NUTREN PULMONARY AT 40 ML/HR, NO RESIDUAL NOTED. IV TO RIGHT ARM RUNNING NS AT 120 ML/HR, SITE INTACT AND PATENT. ABDOMEN SOFT, RILEY CATH IN PLACE WITH CLEAR YELLOW URINE. SKIN NON INTACT ( SEE WOUND ASSESSMENT). SAFETY PRECAUTION IN PLACE. WILL CONTINUE TO MONITOR.
[2016-06-07] MEDS: ACETAMINOPHEN 650 MG/20.3 ML UDC PO PRN (07:37)
--- NOTE | 2016-06-07 07:54 | NUR ---
0745 PT ON CPAP WITH SETTINGS CHARTED AFTER 45 MINUTES PT RUBEN WELL WILL CONTINUE TO MONITOR WEANING PARAMETERS CHARTED
[2016-06-07] MEDS: PANTOPRAZOLE 40 MG INJ VIAL IVP SCH (08:53)
[2016-06-07] MEDS: GABAPENTIN 300 MG CAP NG SCH ×3 (08:54→16:33)
[2016-06-07] MEDS: LACTOBACILLUS RHAMNOSUS GG 1 EACH CAP PO SCH (08:55)
[2016-06-07] MEDS: MUPIROCIN 2% OINT 22 GM TUBE TP SCH ×2 (08:56→21:03)
[2016-06-07] MEDS: BETAMETHASONE TP SCH ×2 (08:57→21:03)
[2016-06-07] MEDS: THERAHONEY GEL 42.5 GM TP SCH (08:57)
[2016-06-07] MEDS: CLOTRIMAZOLE 1% 30 GM CRM TUBE TP SCH ×2 (08:57→21:03)
[2016-06-07] MEDS: CLOTRIMAZOLE TP SCH ×2 (08:57→21:03)
--- NOTE | 2016-06-07 09:00 | NUR ---
PT EXTUBATED AND PLACED ON 2LPM NC PT AWAKE ALERT GOOG O2 SATURATION BREATH SOUND DOMINIK GRUBER WILL CONTINUE TO MONITOR PT Addendum: 06/07/16 at 0921 by Austin Arce RT PT EXTUBATED PER DR LOLITA MARVIN O2 MARIO GRUBER
[2016-06-07] MEDS: PHENYTOIN 100 MG/4 ML UDC GT SCH ×3 (09:19→16:33)
--- NOTE | 2016-06-07 10:14 | NUR ---
PT LEFT UNIT FOR SURGERY, ACCOMPANIED BY MD, OR NURSES AND RT. Addendum: 06/07/16 at 1016 by Eva Lofton RN WRONG PT.
[2016-06-07] MEDS: MORPHINE SULFATE 2 MG/ML SYR IVP PRN ×3 (10:17→21:26)
[2016-06-07] MEDS ORDERED: ALBUTEROL SULFATE/IPRATROPIU 3 ML SOL IH PRN (11:35)
[2016-06-07] MEDS: HYDROcodone/APAP 10/325 MG 1 TAB TAB PO PRN ×3 (11:54→23:24)
[2016-06-07] MEDS: CHLORHEXADINE GLUC 2% CLOTH TP SCH (11:55)
--- NOTE | 2016-06-07 13:00 | NUR ---
PHENOBARBITAL NOT GIVEN AT THIS TIME IT WAS NOT LOADED IN PYXIS. CALLED PHARMACY.
--- NOTE | 2016-06-07 13:30 | NUR ---
DR. DENNIS IN TO ASSESS PT.
--- NOTE | 2016-06-07 13:37 | NUR ---
CM NOTE CONCURRENT REVIEW FAXED TO [facility]AREN HERNANDEZ (FAX# [phone], ATTN: CHICHI #[phone]) AND [facility] (FAX# [phone] ATTN: XAVI #[phone])
--- NOTE | 2016-06-07 15:03 | NUR ---
NG TUBE REMOVED PER DR. LICONA ORDER.
--- NOTE | 2016-06-07 17:05 | NUR ---
PT RESTING IN BED, NO S/S OF RESPIRATORY DISTRESS NOTED. CALL LIGHT IN REACH. WILL CONTINUE TO MONITOR.
--- NOTE | 2016-06-07 18:00 | NUR ---
PT AWAKE,ALERT, AND ORIENTED. TURNED AND REPOSITIONED PT. BED BATH GIVEN. NO SOB.
--- NOTE | 2016-06-07 19:16 | NUR ---
RECEIVED REPORT FROM DAY NURSE KARLI RN AT PATIENT BEDSIDE. PT IS AAOX 4 AND IS ON O2 2LPM VIA N/C WITH NO S/S OF ACUTE RESPIRATORY DISTRESS NOTED AT THIS TIME. LUNG SOUNDS ARE RHONCI UPON AUSCULTATION CONCRETE PLACEMENT EQUIPMENT OPERATOR SHOWS SR AT THIS TIME. PT HAS IV SITE IN RIGHT CHEST RUNNING NS @ 120ML/HR WITH GOOD BLOOD RETURN NOTED. IV SITE IS DRY AND INTACT. PT ABDOMEN IS SOFT. RILEY CATHETER IN PLACE DRAINING YELLOW URINE VIA GRAVITY. SKIN IS NON-INTACT WITH SACRAL WOUND NOTED. SEE WOUND ASSESSMENT. PT HAS LEFT AKA. BED IN LOW POSITION. HOB UP. CALL LIGHT LEFT WITHIN REACH. WILL CONTINUE TO CLOSELY MONITOR.
[2016-06-07] MEDS: MIRTAZAPINE 15 MG TAB NG SCH (21:01)
[2016-06-07] MEDS: MONTELUKAST SODIUM 10 MG TAB NG SCH (21:01)
--- NOTE | 2016-06-07 21:05 | NUR ---
PLT COUNT- 75 HELD DOSE OF HEPARIN
--- NOTE | 2016-06-07 21:30 | NUR ---
PT STATED PAIN LEVEL OF 6/10 AT THIS TIME. MEDICATED ORDERED PRN. NO SOB NOTED AT THIS TIME. WILL CONTINUE TO CLOSELY MONITOR.
[2016-06-08] VITALS (11 sets, daily range): BP systolic 89–134; BP diastolic 33–70
--- NOTE | 2016-06-08 00:18 | NUR ---
PT IS SLEEPING IN BED. NO S/S OF ACUTE RESP DISTRESS AT THIS TIME. NO S/S OF DISCOMFORT AT THIS TIME. WILL CONTINUE TO CLOSELY MONITOR.
[2016-06-08] MEDS: HYDRAGUARD CREAM TP SCH ×2 (01:10→13:22)
[2016-06-08] MEDS: VANCOMYCIN 750 MG in DEXTROSE 5% 250 ML IV SCH ×3 (01:37→18:02)
[2016-06-08] MEDS: ALBUTEROL SULFATE/IPRATROPIU 3 ML SOL IH SCH ×4 (01:45→19:37)
--- NOTE | 2016-06-08 03:31 | NUR ---
PT RESTING IN BED. CONTACT PRECAUTIONS MAINTAINED, SAFETY PRECAUTIONS MAINTAINED. CALL LIGHT LEFT WITHIN REACH. WILL CONTINUE TO CLOSELY MONITOR.
[2016-06-08] MEDS: MEROPENEM 1,000 MG in NACL 0.9% 100 ML IV SCH ×3 (04:49→21:21)
--- NOTE | 2016-06-08 05:26 | NUR ---
PT REFUSED MORNING CARE AT THIS TIME. NO SOB NOTED. PT DENIES ANY DISCOMFORT AT THIS TIME. WILL CONTINUE TO CLOSELY MONITOR.
[2016-06-08] MEDS: LEVOFLOXACIN 500 MG/D5W PREMIX 100 ML IV SCH (06:36)
[2016-06-08] MEDS: LEVOTHYROXINE 0.112 MG TAB NG SCH (06:36)
[2016-06-08] MEDS: NACL 0.9% 1,000 ML IV SCH ×2 (06:37→18:00)
--- NOTE | 2016-06-08 07:16 | NUR ---
ENDORSED PLAN OF CARE TO DAY NURSE MICHELLE BAHENA FOR CONTINUATION OF CARE. NO S/S OF RESP DISTRESS AT THIS TIME.
--- NOTE | 2016-06-08 08:00 | NUR ---
INITIAL SHIFT ASSESSMENT DONE (SEE ASSESSMENT PART). AAOX3. NO C/O PAIN OR DYSPNEA. NOTED RIGHT SIDED WEAKNESS D/T HX OF CVA. NOTED LEFT AKA. O2 SAT 96-99% ON O2 AT 2 L/MIN VIA NC. SR ON MONITOR. SBP IN 120'S. NO ECTOPY NOTED. HOB ELEVATED. UPDATED OF PLAN OF CARE. WILL CONTINUE TO MONITOR.
--- NOTE | 2016-06-08 08:15 | NUR ---
DR LANZA AND MEDICAL INTERNS ARE IN THE ROOM. MD UPDATED OF STATUS. NO NEW ORDERS RECEIVE.
[2016-06-08] MEDS: LACTOBACILLUS RHAMNOSUS GG 1 EACH CAP PO SCH (08:32)
[2016-06-08] MEDS: GABAPENTIN 300 MG CAP NG SCH ×3 (08:32→17:05)
[2016-06-08] MEDS: PANTOPRAZOLE 40 MG INJ VIAL IVP SCH (08:33)
[2016-06-08] MEDS: THERAHONEY GEL 42.5 GM TP SCH (08:34)
[2016-06-08] MEDS: MUPIROCIN 2% OINT 22 GM TUBE TP SCH ×2 (08:35→21:32)
[2016-06-08] MEDS: CLOTRIMAZOLE TP SCH ×2 (08:35→21:33)
[2016-06-08] MEDS: BETAMETHASONE TP SCH ×2 (08:35→21:33)
[2016-06-08] MEDS: CLOTRIMAZOLE 1% 30 GM CRM TUBE TP SCH ×2 (08:36→21:33)
[2016-06-08] MEDS: MORPHINE SULFATE 2 MG/ML SYR IVP PRN ×3 (08:50→19:34)
--- NOTE | 2016-06-08 08:50 | NUR ---
C/O MODERATE PAIN ON SACRAL DECUBITUS AREA. GIVEN MORPHINE SULFATE 2 MG IVP. WILL CONTINUE TO MONITOR.
[2016-06-08] MEDS: PHENYTOIN 100 MG/4 ML UDC GT SCH ×3 (09:40→17:05)
--- NOTE | 2016-06-08 10:00 | NUR ---
SLEEPING AT THIS TIME. NO SIGNS OF PAIN OR DYSPNEA. O2 SAT 95-98%. SR ON MONITOR. SBP IN 130'S. NO ECTOPY NOTED. HOB ELEVATED. WILL CONTINUE TO MONITOR.
[2016-06-08] MEDS: CHLORHEXADINE GLUC 2% CLOTH TP SCH (11:59)
--- NOTE | 2016-06-08 12:00 | NUR ---
REASSESSMENT DONE. NEURO STATUS UNCHANGED. NO C/O PAIN OR DYSPNEA. O2 SAT 95-99%. SR ON MONITOR. SBP IN 110'S. NO ECTOPY NOTED. HOB ELEVATED. UPDATED OF PLAN OF CARE. WILL CONTINUE TO MONITOR.
--- NOTE | 2016-06-08 13:00 | NUR ---
DRESSING ON SACRUM IS CHANGE AT THIS TIME PER ORDER. TOLERATED THE PROCEDURE WELL.
--- NOTE | 2016-06-08 13:34 | NUR ---
06/08/16 RD FOLLOW UP COMPLETED PLEASE REFER TO NUTRITION ASSESSMENT UNDER CARE ACTIVITY FOR ESTIMATED NUTRITIONAL NEEDS. RD RECOMMENDATIONS: 1. CONTINUE NPO MEDICALLY NECESSARY PER MD 2. WHEN MEDICALLY APPROPRIATE CONSIDER ADVANCE DIET AND TOLERATED TO REGULAR WITH TEXTURE MODIFICATIONS PER SPEECH THERAPIST SWALLOW EVALUATION NEEDED 3. RD WILL F/U 3-5 DAYS; MODERATE RISK. THAI ANDRE RD
--- NOTE | 2016-06-08 13:49 | NUR ---
CM NOTE CONCURRENT REVIEW FAXED TO KAREN HERNANDEZ (FAX# [phone], ATTN: Radha #[phone]) AND [facility] (FAX# [phone] ATTN: XAVI #[phone])
--- NOTE | 2016-06-08 13:54 | NUR ---
CM NOTE PER HARIS STILES FOR [facility] ([phone]), PATIENT IS OK TO GO BACK TO [facility] ONCE DISCHARGE ORDERS ARE RECEIVED.
--- NOTE | 2016-06-08 14:00 | NUR ---
C/O MODERATE PAIN AT THIS TIME ON SACRAL DECUBITUS AREA. GIVEN NORCO 1 TAB PO. NO C/O DYSPNEA. O2 SAT 95-99%. SR ON MONITOR. SBP IN 120'S. NO ECTOPY NOTED. HOB ELEVATED. WILL CONTINUE TO MONITOR.
[2016-06-08] MEDS: HYDROcodone/APAP 10/325 MG 1 TAB TAB PO PRN ×2 (14:01→22:41)
--- NOTE | 2016-06-08 15:29 | NUR ---
C/O MODERATE PAIN AGAIN ON SACRAL DECUBITUS AREA. GIVEN MORPHINE SULFATE 2 MG IVP. WILL CONTINUE TO MONITOR.
--- NOTE | 2016-06-08 16:00 | NUR ---
REASSESSMENT DONE. NEURO STATUS STILL THE SAME. NO C/O PAIN OR DYSPNEA. O2 SAT 97-100%. SR ON MONITOR. SBP IN 100'S. NO ECTOPY NOTED. HOB ELEVATED. UPDATED OF PLAN OF CARE. WILL CONTINUE TO MONITOR.
--- NOTE | 2016-06-08 16:38 | NUR ---
* ST NOTE * Bedside Dysphagia and Oral Mechanism exams completed at bedside with caregiver/nursing present. See evaluation report for further details. Pt tolerating 5/5 alternating PO trials of regular solid saltine crackers w/out s/s of aspiration but exhibiting residue on lingua after PO intake of texture. Pt and caregiver/Nursing education completed regarding safe swallow compensatory strategies pt may employ to aid pt with swallow function as well as to clear oral cavity of residue after PO intake, with pt and caregiver/Nursing agreeable with and verbalizing understanding of clinician's recommendations. Pt then tolerating 6/6 alternating PO trials of thin liquid apple juice via a straw w/out s/s of aspiration, exhibiting clear voicing WFL w/out wet or gargly vocal quality after PO intake of thin liquids. Because pt exhibiting residue on lingua after PO intake of regular solids as well as because pt is missing most of her dentition, it is recommended pt's PO diet consistency be modified to Mechanical soft-chopped textures with Thin liquids for all meals, with supervision from staff/caregivers during PO intake to assure aspiration precautions are in place. No further ST follow up recommended at this time. Pt and caregiver/nursing education completed regarding results of evaluation; benefits of abiding by aspiration precautions and recommended PO diet consistency; and prognosis for improvement; with pt and caregiver/Nursing agreeable with and verbalizing understanding of clinician's recommendations. Recommend: - PO diet consistency of Mechanical soft-chopped textures with Thin liquids for all meals - Supervision by caregivers/staff during PO intake to assure aspiration precautions are in place - Pt requires assistance with feeding No further ST follow up recommended at this time. G8996 G8997 CI G8998 CI NOMS Level 2 Time In/Out 16:05 - 16:35
--- NOTE | 2016-06-08 16:45 | NUR ---
IV CATH ON RIGHT CHEST GOT INFILTRATED. INSERTED A NEW IV CATH ON UPPER RIGHT CHEST AREA USING GAUGE 24 NEEDLE WITH GOOD BLOOD RETURN. TEGADERM DRESSING IS THEN PLACED. TOLERATED THE PROCEDURE WELL.
--- NOTE | 2016-06-08 17:30 | NUR ---
GIVEN PARTIAL BATH AND LINENS ARE CHANGE. TOLERATED THE PROCEDURE WELL.
--- NOTE | 2016-06-08 18:00 | NUR ---
RESTING IN BED. NO C/O PAIN OR DYSPNEA. O2 SAT 98-100%. SR ON MONITOR. SBP IN 100'S. NO ECTOPY NOTED. HOB ELEVATED. WILL CONTINUE TO MONITOR.
--- NOTE | 2016-06-08 18:10 | NUR ---
REPORT GIVEN TO INCOMING ROOF TILER MICHELLE MARTINEZ. Addendum: 06/08/16 at 1922 by Agency Ronaldo MARTINEZ RN WRONG TIME.
--- NOTE | 2016-06-08 18:15 | NUR ---
PODIATRY RESIDENT IS IN THE ROOM TALKING TO THE PATIENT. NO NEW ORDER RECEIVE.
--- NOTE | 2016-06-08 19:10 | NUR ---
REPORT GIVEN TO INCOMING TUNNEL KILN REPAIRER RN, RN NATHAN.
--- NOTE | 2016-06-08 19:20 | NUR ---
RECEIVED REPORT FROM SHRUTI MARTINEZ. PATIENT IS ALERT, AWAKE, AND ORIENTED IN BED, WATCHING TV. NO SIGNS OF RESPIRATORY DISTRESS OR SOB NOTED. BREATH SOUNDS ARE DIMINISHED ON AUSCULTATION AND BOWEL SOUNDS ARE HYPOACTIVE. THERE IS A #24 IN THE RIGHT UPPER CHEST RECEIVING NORMAL SALINE AT 100 ML/HR. SITE IS DRY, INTACT, AND ASYMPTOMATIC. THERE IS A RILEY CATHETER IN PLACE MODERATE AMOUNT OF YELLOW COLOR URINE NOTED. PATIENT IS LEFT AKA AND HER RIGHT TIBIAL HAS A CLOSED REDUCTION. HOB AT 30 DEGREES WITH BED IN LOW POSITION. CONTINUE TO MONITOR PATIENT.
--- NOTE | 2016-06-08 19:35 | NUR ---
RESPIRATORY AT BEDSIDE ADMINISTERING SCHEDULED BREATHING TREATMENT.
[2016-06-08] MEDS: MONTELUKAST SODIUM 10 MG TAB NG SCH (21:21)
[2016-06-08] MEDS: MIRTAZAPINE 15 MG TAB NG SCH (21:21)
--- NOTE | 2016-06-08 21:41 | NUR ---
PATIENT TOLERATED SCHEDULED MEDICATION ADMINISTRATION. NO SIGNS OF SOB OR DISCOMFORT NOTED. CONTINUE TO MONITOR.
--- NOTE | 2016-06-08 22:47 | NUR ---
PATIENT REPOSITIONED FOR COMFORT. NO SIGNS OF RESPIRATORY DISTRESS NOTED. HOB AT 30 DEGREES WITH BED IN LOW POSITION. CONTINUE TO MONITOR PATIENT.
[2016-06-09] VITALS: BP 103/56
--- NOTE | 2016-06-09 00:43 | NUR ---
PATIENT REPOSITIONED FOR COMFORT WITH NO S/S OF SOB NOTED. HOB AT 30 DEGREES WITH BED IN LOW POSITION. CONTINUE TO MONITOR PATIENT.
[2016-06-09] MEDS: HYDRAGUARD CREAM TP SCH ×2 (00:48→13:18)
--- NOTE | 2016-06-09 01:15 | NUR ---
ENDORSED CONTINUITY OF CARE TO PATRICE MARTINEZ. PATIENT TO TRANSFER TO [facility] UNIT ROOM 107.
--- NOTE | 2016-06-09 01:21 | NUR ---
PATIENT TRANSPORTED VIA GURNEY TO [facility] ROOM 107 WITH PATRICE MARTINEZ AND CHARGE NURSE SHAKIR MARTINEZ. PATIENT IN STABLE CONDITION.
--- NOTE | 2016-06-09 01:22 | NUR ---
RECEIVED REPORT FROM MICHELLE EVANS. PATIENT IS AAOX4, ABLE TO FOLLOW COMMANDS AND MAKE NEEDS KNOWN, NO SIGNS OF RESPIRATORY DISTRESS OR SOB NOTED, BREATH EVEN AND UNLABORED, DIMINISHED LUNG SOUNDS, ON O2 AT 2L VIA NC, SOFT ABD WITH HYPOACTIVE BOWEL SOUNDS. IV SITE TO RIGHT UPPER CHEST #24 RUNNING NS AT 100 ML/HR. PATENT, AND ASYMPTOMATIC. RILEY CATHETER IN PLACE WITH YELLOW COLOR URINE NOTED. AFEBRILE, SKIN IS WARM AND DRY TO TOUCH, LEFT AKA AND DISCOLORATION OF RIGHT LOWER EXTREMITY NOTED. OPEN WOUND TO SACRAL AREA, (SEE WOUND ASSESSMENT). C/O PAIN TO WOUND SITE, PAIN MEDICATION GIVEN ORDERED. VSS. ORIENTED PATIENT TO NEW ROOM ENVIRONMENT, CALL LIGHT AND TV. PLACED PATIENT IN COMFORT POSITION WITH SEIZURE PRECAUTION AND FALL PRECAUTION, ASPIRATION PRECAUTION IN PLACE, WILL CONTINUE TO MONITOR PATIENT.
[2016-06-09] MEDS: ALBUTEROL SULFATE/IPRATROPIU 3 ML SOL IH SCH ×4 (01:41→19:31)
[2016-06-09] MEDS: MORPHINE SULFATE 2 MG/ML SYR IVP PRN ×3 (01:59→17:04)
[2016-06-09] MEDS: VANCOMYCIN 750 MG in DEXTROSE 5% 250 ML IV SCH (02:00)
--- NOTE | 2016-06-09 02:00 | NUR ---
PATIENT C/O PAIN ON WOUND SITE AT SACRAL AREA, 12/12, DIDN'T SUBSITE BY CHANGING POSITION, MEDICATED AND EDUCATION, NO ADVERSE EFFECTS NOTED, VSS.
[2016-06-09] MEDS: NACL 0.9% 1,000 ML IV SCH ×2 (02:10→13:19)
[2016-06-09 04:00] VITALS: BP 92/52
--- NOTE | 2016-06-09 04:00 | NUR ---
PT IS ASLEEP, NO CHANGE OF CONDITION AT THIS TIME, VSS. POSITION CHANGED FOR OFF LOAD PRESSURE.
[2016-06-09] MEDS: MEROPENEM 1,000 MG in NACL 0.9% 100 ML IV SCH ×2 (04:22→13:18)
[2016-06-09] MEDS: LEVOTHYROXINE 0.112 MG TAB NG SCH (06:11)
[2016-06-09] MEDS: LEVOFLOXACIN 500 MG/D5W PREMIX 100 ML IV SCH (06:31)
--- NOTE | 2016-06-09 07:10 | NUR ---
RECEIVED REPORT FROM THE HISTOLOGY TECHNICIAN NURSE AT BEDSIDE FOR CONTINUITY OF CARE. PT IS ASLEEP. WILL BE BACK TO DO ASSESSMENT.
--- NOTE | 2016-06-09 07:10 | NUR ---
PT REFUSED HHN TX, REQUESTED TO BE LEFT ALONE TO REST, INFORMED ABOUT IMPORTANCE OF TX, PT STILL DENIED, PT UNDERSTANDS TO CALL FOR PRN TX, NO RESP DISTRESS OR SOB NOTED, SPO2 96% ON 2L NC. WILL CONTINUE TO MONITOR.
--- NOTE | 2016-06-09 07:16 | NUR ---
LAB CALLED WITH CRITICAL: VANCO TROUGH 30.5 NOTIFIED . NOTIFIED LAB. PER RENÉ, NO DOSE TODAY.
--- NOTE | 2016-06-09 07:45 | NUR ---
RADIOLOGY WANTED TO TAKE PT TO HAVE SOME XRAYS DONE. PT AT FIRST REFUSED. TOO TIRED. JUST WANT TO BE LEFT ALONE. THEY WILL BE BACK WHEN SHE IS MORE ALERT. V/S: 97.9F, 94/53; 71; 96% AND 20 R. NOTED THE PADS FOR SEIZURE PRECAUTION. SIDE RAILS UP. PT IS ALERT AND ANSWERS ALL QUESTIONS APPROPRIATELY AND KNOWS WHAT SHE WANTS AND DOESN'T WANT. PT HAS IV ON R UPPER CHEST 24G IV NS 100. PT HAS A PRESSURE ULCER STAGE 4 ON SACRAL AREA. COVERED WITH MEPLEX. DRY AND INTACT. PT ALSO HAS A L AKA. R FOOT BOOT. ALL SAFETY FEATURES IN PLACE. WILL CONTINUE TO MONITOR PT.
[2016-06-09 08:00] VITALS: BP 94/53
[2016-06-09] MEDS ORDERED: MAG SULF 2000 MG/WATER PREMIX 50 ML IV SCH (09:00)
[2016-06-09] MEDS: LACTOBACILLUS RHAMNOSUS GG 1 EACH CAP PO SCH (09:04)
[2016-06-09] MEDS: GABAPENTIN 300 MG CAP NG SCH ×3 (09:04→17:04)
[2016-06-09] MEDS: PANTOPRAZOLE 40 MG INJ VIAL IVP SCH (09:05)
[2016-06-09] MEDS: PHENYTOIN 100 MG/4 ML UDC GT SCH ×3 (09:05→17:04)
[2016-06-09] MEDS: CLOTRIMAZOLE 1% 30 GM CRM TUBE TP SCH (09:08)
[2016-06-09] MEDS: MUPIROCIN 2% OINT 22 GM TUBE TP SCH (09:08)
[2016-06-09] MEDS: BETAMETHASONE TP SCH (09:09)
[2016-06-09] MEDS: CLOTRIMAZOLE TP SCH (09:09)
[2016-06-09] MEDS: THERAHONEY GEL 42.5 GM TP SCH (09:10)
--- NOTE | 2016-06-09 09:10 | NUR ---
ADMINISTERED MORNING MEDS. PT TOLERATED THEM WELL. DID ALL THE WOUND CARE ON THE LEG AND FOOT. PT TOLERATED WELL. SHE WAS WET. CALLED THE CRM MARKETING ANALYST'S TO COME AND CLEAN AND CHANGE PT. WILL DO THE WOUND CARE ON HER SACRAL WHEN THEY CHANGE HER.
--- NOTE | 2016-06-09 09:40 | NUR ---
GRETCHEN CALLED AND LET ME KNOW SHE IS CLEAN AND READY FOR WOUND CARE ON SACRUM. WHEN I CHECKED THE DRESSING WAS DRY AND INTACT. NO NEED FOR CHANGE AT THIS TIME. WILL CHECK LATER IN THE DAY IF IT NEEDS CHANGING. WILL CONTINUE TO MONITOR PT.
[2016-06-09] MEDS ORDERED: LIDOCAINE 1% 50 ML ONE (10:06)
--- NOTE | 2016-06-09 10:19 | NUR ---
FAXED CONCURRENT REVIEW TO KAREN HERNANDEZ [phone] FAXED CONCURRENT REVIEW TO [facility] [phone] [facility] [phone]
--- NOTE | 2016-06-09 10:30 | NUR ---
RADIOLOGY IS HERE FOR HER XRAYS.
[2016-06-09] MEDS: CHLORHEXADINE GLUC 2% CLOTH TP SCH (11:55)
[2016-06-09 12:00] VITALS: BP 81/47
--- NOTE | 2016-06-09 13:30 | NUR ---
DR. VIDALES PERFORMED THE DEBRIDEMENT ON THE SACRAL AREA. PT TOLERATED WELL.
--- NOTE | 2016-06-09 14:21 | NUR ---
SS NOTE: [place] [facility] ([phone][place] PT CAN GO TO ROOM 12B ANYTIME UNDER DR. Goyo LUCERO. HARIS REYNA.
[2016-06-09] MEDS ORDERED: PHENOBARBITAL GT (14:38)
[2016-06-09] MEDS ORDERED: MEROPENEM1 GM IV (14:45)
[2016-06-09] MEDS ORDERED: APLICARE ANTIS118 M2 TP (14:45)
[2016-06-09] MEDS ORDERED: VANCOMYCIN750 MG/250 IV (14:45)
[2016-06-09] MEDS ORDERED: LOTRISONE15 GM TP (14:45)
[2016-06-09] MEDS ORDERED: BACTROBAN 2%20 MG/GM TP (14:45)
--- NOTE | 2016-06-09 15:17 | NUR ---
CALLED CHARLIE FROM [facility], [facility]. SHE SAID TO FAX ORDER TO HER FOR [place] [facility] I ASKED HER FOR AUTH FOR TRANSPORT. SHE SAID TO USE [facility],[phone]. I CALLED [facility] AND WAS TOLD THEY CANNOT TRANSPORT IN [facility]. I INFORMED CHARLIE FROM THE [facility] AND SHE SAID TO USE [facility]. I CALLED [facility] [place] AND SET UP TRANSPORT FOR 8 P.M. AUTH NUMBER FROM [facility], CHARLIE [phone] FOR [facility] IS [id number]. TRANSPORT TIME GIVEN TO SHERLYN MARTINEZRESTAURANT HOSTESS NURSE.
[2016-06-09 16:00] VITALS: BP 82/49
--- NOTE | 2016-06-09 16:00 | NUR ---
NOTIFIED PT THAT SHE WILL BE LEAVING FOR [facility] AROUND 8 PM. PT AWARE AND VERBALIZED UNDERSTANDING. WILL CONTINUE TO MONITOR PT.
--- NOTE | 2016-06-09 16:53 | NUR ---
PT IS SLEEPING SOUNDLY IN SEMI CRUZ'S. NO SIGNS OF DISTRESS. WILL CONTINUE TO MONITOR PT.
--- NOTE | 2016-06-09 17:18 | NUR ---
THE DETENTION WORKER GOT HER READY IN HER TRANSPORT GOWN AND BLANKET. HER TRANSPORT WON'T GET HERE UNTIL 8PM BUT THEY NEEDED TO GET HER READY WHEN THEY HAVE THE CHANCE. PT IS DOING FINE. RESTING COMFORTABLY. NOTIFIED HER THAT DINNER WILL BE HERE SOON. CALL LIGHT WITHIN REACH. WILL CONTINUE TO MONITOR HER.
--- NOTE | 2016-06-09 18:03 | NUR ---
CALLED [facility] AND SPOKE TO MICHELLE GLEASON. GAVE A FULL REPORT. TRANSPORT TIME IS 8PM. WILL HAVE ALL DISCHARGE PAPERWORK DONE FOR TRANFER.
--- NOTE | 2016-06-09 19:05 | NUR ---
ENDORSED PT TO THE HOOK AND EYE SEWING MACHINE OPERATOR NURSE AT BEDSIDE. PT IS IN STABLE CONDITION. ALL READY TO GO.
--- NOTE | 2016-06-09 19:05 | NUR ---
PATIENT RECEIVED IN NO DISTRESS RESTING IN BED WAITING FOR TRANSPORTATION TO TAKE HER BACK TO [facility]. WILL CONTINUE TO MONITOR.
--- NOTE | 2016-06-09 20:00 | NUR ---
REPORT GIVEN TO TRANSPORT TEAM TAKING THE PATIENT BACK TO [facility] VS TAKEN CURRENTLY 101/52 H 83 20 O2SAT 96% PATIENT SEND WITH A IV LINE TO RT UPPER CHEST G#24 AND ALSO WITH A RILEY CATHETER ALL ID BANDS HAVE BEEN CUT AND DISCARDED APPROPRIATELY.PATIENT DISCHARGED.
[2016-08-21] MEDS ORDERED: ACIDOPHILUS1 EAC3 PO (23:49)
[2016-08-21] MEDS ORDERED: FLEET ENEMA 13135 ML RC (23:49)
[2016-08-21] MEDS ORDERED: COLACE100 M1 PO (23:49)
[2016-08-21] MEDS ORDERED: MILK OF MA400 MG/5 M PO (23:49)
[2016-08-21] MEDS ORDERED: PULMICORT0.5 MG/2 M NEB (23:49)
[2016-08-21] MEDS ORDERED: XARELTO20 MG PO (23:49)
[2016-08-21] MEDS ORDERED: CRANBERRY450 MG PO (23:49)
[2016-08-28] MEDS ORDERED: DILANTIN100 M1 PO (12:16)
[2016-08-28] MEDS ORDERED: XARELTO10 MG PO (12:16)
[2016-08-28] MEDS ORDERED: PHARMASSURE VI500 MG PO (12:16)
[2016-08-28] MEDS ORDERED: GABAPENTIN300 M3 PO (12:16)
[2016-08-28] MEDS ORDERED: SINGULAIR10 MG PO (12:16)
[2016-08-28] MEDS ORDERED: FEROSUL325 MG PO (12:16)
[2016-08-28] MEDS ORDERED: MIRTAZAPINE15 MG PO (12:16)
[2016-08-28] MEDS ORDERED: COLACE100 M1 PO (12:16)
[2016-08-28] MEDS ORDERED: [UNRECOGNIZED DRUG - OTHER] TP (12:16)
[2016-08-28] MEDS ORDERED: PHENOBARBITAL PO (12:16)
[2016-08-28] MEDS ORDERED: BACTRIM DS 800/1 TAB PO (12:16)
[2016-08-28] MEDS ORDERED: CULTURELLE10 Billion PO (12:16)
[2016-08-28] MEDS ORDERED: [UNRECOGNIZED DRUG - OTHER] TP (12:16)
[2016-08-28] MEDS ORDERED: TAB-A-VITE1 TA3 PO (12:16)
[2016-08-28] MEDS ORDERED: FUROSEMIDE40 M1 PO (12:16)
[2016-08-28] MEDS ORDERED: CLINDAMYCIN HC150 M1 PO (12:16)
[2016-08-28] MEDS ORDERED: ACETAMINOPHEN325 M2 PO (12:16)
[2016-09-26] MEDS ORDERED: TAB-A-VITE1 TA3 PO (09:04)
[2016-09-26] MEDS ORDERED: PHENOBARBITAL30 M1 PO (09:04)
[2016-09-26] MEDS ORDERED: ABILIFY10 MG PO (09:04)
[2016-09-26] MEDS ORDERED: ATORVASTATIN CA20 MG PO (09:04)
[2016-09-26] MEDS ORDERED: KEPPRA500 MG PO (09:04)
[2016-09-26] MEDS ORDERED: PANTOPRAZOLE SO40 MG PO (09:04)
[2016-09-26] MEDS ORDERED: BENADRYL50 M1 PO (09:04)
[2016-09-26] MEDS ORDERED: ACETAMINOPHEN325 M2 PO (09:04)
[2016-09-26] MEDS ORDERED: QUETIAPINE FUMA25 M1 PO (09:04)
[2016-09-26] MEDS ORDERED: MIRTAZAPINE15 MG PO (09:04)
[2016-09-26] MEDS ORDERED: CULTURELLE10 Billion PO (09:04)
[2016-09-26] MEDS ORDERED: XARELTO10 MG PO (09:20)
== END 2016-06-09 20:10 | DRG 26 ==
LOC: MED 21:04 → MIC 23:49 → MTU 06-09 01:30
PROVIDERS: ADMIT Family Medicine; ATTEND Family Medicine
PROC: 5A1945Z Respiratory Ventilation, 24-96 Consecutive Hours (ICD-10-PCS; principal; 2016-06-03)
PROC: 0BH17EZ Insertion of Endotracheal Airway into Trachea, Via Natural or Artificial Opening (ICD-10-PCS; 2016-06-03)
PROC: 05H533Z Insertion of Infusion Device into Right Subclavian Vein, Percutaneous Approach (ICD-10-PCS; 2016-06-03)
PROC: 06HM33Z Insertion of Infusion Device into Right Femoral Vein, Percutaneous Approach (ICD-10-PCS; 2016-06-03)
PROC: 4A00X4Z Measurement of Central Nervous Electrical Activity, External Approach (ICD-10-PCS; 2016-06-06)
PROC: 0KBN0ZZ Excision of Right Hip Muscle, Open Approach (ICD-10-PCS; 2016-06-09)
PROC: 0KBP0ZZ Excision of Left Hip Muscle, Open Approach (ICD-10-PCS; 2016-06-09)
DX: G40.901 Epilepsy, unspecified, not intractable, with status epilepticus (principal); N17.0 Acute kidney failure with tubular necrosis; J96.21 Acute and chronic respiratory failure with hypoxia; L89.154 Pressure ulcer of sacral region, stage 4; I82.411 Acute embolism and thrombosis of right femoral vein; S82.201A Unspecified fracture of shaft of right tibia, initial encounter for closed fracture; G90.9 Disorder of the autonomic nervous system, unspecified; I69.351 Hemiplegia and hemiparesis following cerebral infarction affecting right dominant side; N39.0 Urinary tract infection, site not specified; G62.9 Polyneuropathy, unspecified; E83.42 Hypomagnesemia; Z89.612 Acquired absence of left leg above knee; I10 Essential (primary) hypertension; E03.9 Hypothyroidism, unspecified; F32.9 Major depressive disorder, single episode, unspecified; J44.9 Chronic obstructive pulmonary disease, unspecified; M47.9 Spondylosis, unspecified; I73.9 Peripheral vascular disease, unspecified; I87.2 Venous insufficiency (chronic) (peripheral); L81.9 Disorder of pigmentation, unspecified; B35.3 Tinea pedis; G47.00 Insomnia, unspecified; K21.9 Gastro-esophageal reflux disease without esophagitis; B35.1 Tinea unguium; Z87.891 Personal history of nicotine dependence; Z88.0 Allergy status to penicillin; Z88.8 Allergy status to other drugs, medicaments and biological substances; Z88.1 Allergy status to other antibiotic agents; Z91.041 Radiographic dye allergy status; Z91.048 Other nonmedicinal substance allergy status

== ENCOUNTER 2016-08-21 23:14 | Inpatient (IN) | payer OTHER ==
[~2016-08-21] VITALS: Ht 170.2 cm; Wt 68.0 kg
[~2016-08-21 23:14] MED LIST: ASCO500T45 PO; BACTO TP; BISA-213 RC; CHLO118S2 TP; FERR325E14 PO; FURO-570 PO; GABA300C PO; HYDR-4446 PO; LEVO0.124 PO; LOTRC TP; MELA3TAB PO; MERO1PDS2 IV; MIRT15TA PO; MONT10TA35 PO; MSCON30 PO; MULT-153 PO; OMEP20TC PO; PHEN100C3 PO; TYL650S RC; VANC750P6 IV; [UNRECOGNIZED DRUG - CODE] GT
[2016-08-21 23:16] VITALS: BP 145/74
[2016-08-21] MEDS ORDERED: MAGN400S60 PO (23:49)
[2016-08-21] MEDS ORDERED: DUONEB INH ×2 (23:49)
[2016-08-21] MEDS ORDERED: RIVA20TA PO (23:49)
[2016-08-21] MEDS ORDERED: LACT1TAB PO (23:49)
[2016-08-21] MEDS ORDERED: DOCU-67 PO (23:49)
[2016-08-21] MEDS ORDERED: NA P135N RC (23:49)
[2016-08-21] MEDS ORDERED: CRAN450C PO (23:49)
[2016-08-21] MEDS ORDERED: PUL.5N NEB (23:49)
[2016-08-22 00:36] LABS: BASOPHILS # (AUTO) 0.2 K/uL (0.00-0.22); BASOPHILS % (AUTO) 3.9 % (0.0-2.0); EOSINOPHILS # (AUTO) 0.4 K/uL (0-0.4); EOSINOPHILS % (AUTO) 6.3 % (0.0-4.0); HEMATOCRIT 39.4 % (36-48); HEMOGLOBIN 12.9 g/dL (12.0-16.0); LYMPHOCYTES # (AUTO) 1.6 K/uL (2.5-16.5); LYMPHOCYTES % (AUTO) 27.1 % (20.5-51.1); MEAN CORPUSCULAR HEMOGLOBIN 29 pg (27-31); MEAN CORPUSCULAR HGB CONC 33 g/dL (33-37); MEAN CORPUSCULAR VOLUME 90 fL (80-94); MONOCYTES # (AUTO) 0.4 K/uL (0.8-1.0); MONOCYTES % (AUTO) 6.9 % (1.7-9.3); NEUTROPHILS # (AUTO) 3.4 K/uL (1.8-7.7); NEUTROPHILS % (AUTO) 55.8 % (42.2-75.2); PLATELET COUNT (AUTO) 200 K/uL (140-450); RED BLOOD CELL COUNT(AUTO) 4.38 MIL/uL (4.20-5.40); RED CELL DISTRIBUTION WIDTH 13.8 % (11.6-13.7)
[2016-08-22 00:45] LABS: APPEARANCE,URINE CLOUDY (CLEAR); BILIRUBIN,URINE NEGATIVE (NEGATIVE); BLOOD, URINE 3+ (NEGATIVE); COLOR,URINE YELLOW (YELLOW); LEUKOCYTE ESTERASE ,URINE 1+ (NEGATIVE); NITRITE, URINE NEGATIVE (NEGATIVE); PROTEIN,URINE NEGATIVE (NEGATIVE); UGLUCOSE NEGATIVE (NEGATIVE); UROBILINOGEN,URINE 0.2 EU/dL (0.2 - 1)
[2016-08-22 00:50] LABS: AMPHETAMINE, URINE NEG. ng/ml (NEG <=1000); BARBITURATE, URINE POS. ng/ml (NEG <=200); BENZODIAZEPINE, URINE NEG. ng/mL (NEG <=200); CANNABINOID, URINE NEG. ng/mL (NEG <=50); COCAINE, URINE NEG. ng/mL (NEG <=300); OPIATE, URINE POS. ng/mL (NEG <=2000); PHENCYCLIDINE SCREEN,URINE NEG. ng/mL (NEG <=25)
[2016-08-22 00:58] LABS: ALANINE AMINOTRANSFERASE 20 U/L (12-78); ALKALINE PHOSPHATASE 164 U/L (46-116); ANION GAP 7.6 (8-16); ASPARTATE AMINOTRANSFERASE 20 U/L (15-37); CALCIUM 9.9 mg/dL (8.5-10.1); CARBON DIOXIDE 35.2 mmol/L (21-32); CHLORIDE 101 mmol/L (98-107); CREATINE KINASE, TOTAL 58 U/L (26-192); CREATININE 0.6 mg/dL (0.6-1.3); GFR ARICAN-AMERICAN 133 mL/min (>90); GFR NON ARICAN-AMERICAN 110 mL/min (>90); GLUCOSE 139 mg/dL (74-106); POTASSIUM 3.8 mmol/L (3.5-5.1); SALICYLATE 3.5 mg/dL (2.8-20.0); SODIUM SERUM 140 mmol/L (136-145); TOTAL BILIRUBIN 0.3 mg/dL (0.0-1.0); TOTAL PROTEIN, SERUM 7.5 g/dL (6.4-8.2); UREA NITROGEN, BLOOD 22 mg/dL (7-18)
[2016-08-22 01:07] LABS: ACETAMINOPHEN < 0.5 ug/ml (10-30); ALCOHOL, BLOOD < 3 mg/dL (<3)
[2016-08-22 01:48] LABS: BACTERIA,URINE 4+ /HPF (None Seen); RBC,URINE TOO NUMEROUS TO COUN /HPF (0-5)
[2016-08-22 01:49] LABS: SQUAMOUS EPITHELIAL CELL,UR 0-3 /LPF (0-3 (FEW))
[2016-08-22] MEDS ORDERED: LEVOFLOXACIN 500 MG/D5W PREMIX 100 ML IV ONE (04:25)
[2016-08-22] MEDS ORDERED: NALOXONE PFS 2 MG/2 ML SYR IVP ONE (04:30)
[2016-08-22] MEDS ORDERED: NACL 0.9% 1,000 ML IV ONE (04:30)
[2016-08-22 07:04] LABS: LACTIC ACID 1.1 mmol/L (0.4-2.0)
[2016-08-22] MEDS ORDERED: ONDANSETRON 4 MG/2 ML VIAL IM/IVP PRN (07:15)
[2016-08-22] MEDS ORDERED: DOCUSATE SODIUM 100 MG GELCAP PO PRN (07:15)
[2016-08-22 07:30] VITALS: BP 144/74
[2016-08-22] MEDS: NACL 0.9% 1,000 ML IV SCH ×2 (09:32→23:54)
[2016-08-22 12:00] VITALS: BP 122/69
[2016-08-22 16:00] VITALS: BP 143/68
[2016-08-22] MEDS: FERROUS SULFATE 325 MG TABEC PO SCH (16:47)
[2016-08-22] MEDS: GABAPENTIN 300 MG CAP PO SCH (16:47)
[2016-08-22] MEDS: PHENYTOIN 100 MG CAPER PO SCH (16:54)
[2016-08-22 20:42] VITALS: BP 150/75
[2016-08-22] MEDS ORDERED: Z-GUARD PASTE TP SCH (21:00)
[2016-08-22] MEDS ORDERED: MELATONIN 6 MG PO SCH (21:00)
[2016-08-22] MEDS: MONTELUKAST SODIUM 10 MG TAB PO SCH (21:01)
[2016-08-22] MEDS: MIRTAZAPINE 15 MG TAB PO SCH (21:01)
[2016-08-22] MEDS: Z-GUARD PASTE TP SCH (21:16)
[2016-08-23 01:07] VITALS: BP 147/71
[2016-08-23 04:00] VITALS: BP 140/81
[2016-08-23] MEDS: PANTOPRAZOLE 40 MG TABEC PO SCH (05:55)
[2016-08-23] MEDS: LEVOTHYROXINE 0.1 MG, LEVOTHYROXINE 0.025 MG PO SCH ×2 (05:56)
[2016-08-23 08:00] VITALS: BP 155/72
[2016-08-23] MEDS ORDERED: RIVAROXABAN 10 MG TAB PO SCH (09:00)
[2016-08-23] MEDS: Z-GUARD PASTE TP SCH ×2 (09:00→20:36)
[2016-08-23] MEDS ORDERED: OMEPRAZOLE MAGNESIUM 40 MG PO SCH (09:00)
[2016-08-23] MEDS ORDERED: NON-FORMULARY ITEM (Levothyroxine Sodium* (Synthroid*) 0.125 MG) PO SCH (09:00)
[2016-08-23] MEDS: GABAPENTIN 300 MG CAP PO SCH ×3 (09:01→16:30)
[2016-08-23] MEDS: ASCORBIC ACID 500 MG TAB PO SCH (09:01)
[2016-08-23] MEDS: MULTIVITAMIN 1 TAB PO SCH (09:02)
[2016-08-23] MEDS: LACTOBACILLUS RHAMNOSUS GG 1 EACH CAP PO SCH (09:02)
[2016-08-23] MEDS: FERROUS SULFATE 325 MG TABEC PO SCH ×2 (09:02→16:30)
[2016-08-23] MEDS: LEVOFLOXACIN 500 MG/D5W PREMIX 100 ML IV SCH (09:03)
[2016-08-23] MEDS: FUROSEMIDE 40 MG TAB PO SCH (09:03)
[2016-08-23] MEDS: PHENYTOIN 100 MG CAPER PO SCH ×3 (09:04→16:30)
[2016-08-23 12:00] VITALS: BP 140/67
[2016-08-23 16:00] VITALS: BP 150/63
[2016-08-23] MEDS: NACL 0.9% 1,000 ML IV SCH (16:34)
[2016-08-23 20:00] VITALS: BP 155/67
[2016-08-23] MEDS: MIRTAZAPINE 15 MG TAB PO SCH (20:36)
[2016-08-23] MEDS: MONTELUKAST SODIUM 10 MG TAB PO SCH (20:36)
[2016-08-24] VITALS: BP 142/88
[2016-08-24] MEDS: HYDROcodone/APAP 7.5/325 MG 1 TAB PO PRN (00:28)
[2016-08-24 04:00] VITALS: BP 145/72
[2016-08-24] MEDS: PANTOPRAZOLE 40 MG TABEC PO SCH (06:07)
[2016-08-24] MEDS: LEVOTHYROXINE 0.1 MG, LEVOTHYROXINE 0.025 MG PO SCH ×2 (06:08)
[2016-08-24 08:00] VITALS: BP 141/74
[2016-08-24] MEDS: LEVOFLOXACIN 500 MG/D5W PREMIX 100 ML IV SCH (08:53)
[2016-08-24] MEDS: ASCORBIC ACID 500 MG TAB PO SCH (08:53)
[2016-08-24] MEDS: FERROUS SULFATE 325 MG TABEC PO SCH ×2 (08:53→17:00)
[2016-08-24] MEDS: PHENYTOIN 100 MG CAPER PO SCH ×3 (08:54→17:00)
[2016-08-24] MEDS: MULTIVITAMIN 1 TAB PO SCH (08:54)
[2016-08-24] MEDS: GABAPENTIN 300 MG CAP PO SCH ×3 (08:54→17:00)
[2016-08-24] MEDS: FUROSEMIDE 40 MG TAB PO SCH (08:54)
[2016-08-24] MEDS: LACTOBACILLUS RHAMNOSUS GG 1 EACH CAP PO SCH (08:54)
[2016-08-24] MEDS: Z-GUARD PASTE TP SCH ×2 (09:06→21:00)
[2016-08-24] MEDS: NACL 0.9% 1,000 ML IV SCH (09:14)
[2016-08-24] MEDS: SKINTEGRITY HYDROGEL TP SCH (09:31)
[2016-08-24 12:00] VITALS: BP 120/81
[2016-08-24 16:18] VITALS: BP 144/79
[2016-08-24] MEDS: MONTELUKAST SODIUM 10 MG TAB PO SCH (21:00)
[2016-08-24] MEDS: MIRTAZAPINE 15 MG TAB PO SCH (21:00)
[2016-08-25 00:32] VITALS: BP 153/97
[2016-08-25] MEDS: MORPHINE SULFATE 2 MG/ML SYR IVP PRN ×2 (00:38→08:57)
[2016-08-25] MEDS: NACL 0.9% 1,000 ML IV SCH ×3 (01:54→18:38)
[2016-08-25] MEDS: PANTOPRAZOLE 40 MG TABEC PO SCH (05:42)
[2016-08-25] MEDS: LEVOTHYROXINE 0.1 MG, LEVOTHYROXINE 0.025 MG PO SCH ×2 (05:42)
[2016-08-25 08:00] VITALS: BP 152/84
[2016-08-25] MEDS: FERROUS SULFATE 325 MG TABEC PO SCH ×2 (08:00→18:01)
[2016-08-25] MEDS: MULTIVITAMIN 1 TAB PO SCH (09:00)
[2016-08-25] MEDS: ASCORBIC ACID 500 MG TAB PO SCH (09:00)
[2016-08-25] MEDS: PHENYTOIN 100 MG CAPER PO SCH ×3 (09:00→18:01)
[2016-08-25] MEDS: SKINTEGRITY HYDROGEL TP SCH (09:00)
[2016-08-25] MEDS: LACTOBACILLUS RHAMNOSUS GG 1 EACH CAP PO SCH (09:00)
[2016-08-25] MEDS: GABAPENTIN 300 MG CAP PO SCH ×3 (09:00→18:01)
[2016-08-25] MEDS: FUROSEMIDE 40 MG TAB PO SCH (09:00)
[2016-08-25] MEDS: Z-GUARD PASTE TP SCH ×2 (10:27→21:13)
[2016-08-25] MEDS ORDERED: cefTAZidime 500 MG in DEXTROSE 5% 50 ML IV SCH ×2 (11:00→21:00)
[2016-08-25] MEDS: HYDROmorphone 1 MG/ML AMP IVP PRN ×3 (11:38→21:12)
[2016-08-25] MEDS ORDERED: SULFAMETH/TRIMETH DS 800/160MG 1 TAB PO SCH (12:30)
[2016-08-25] MEDS ORDERED: PROPOFOL 200 MG/20 ML VIAL IV ONE (13:35)
[2016-08-25] MEDS ORDERED: ONDANSETRON 4 MG/2 ML VIAL ONE (13:35)
[2016-08-25] MEDS ORDERED: HYDROGEN PEROXIDE 3% 240 ML BTL TP ONE (13:40)
[2016-08-25] MEDS ORDERED: MORPHINE SULFATE 4 MG/ML SYR ONE ×2 (13:52→15:15)
[2016-08-25] MEDS ORDERED: MIDAZOLAM 2 MG/2 ML VIAL ONE (13:52)
[2016-08-25] MEDS ORDERED: fentaNYL 0.05 MG/ML VIAL ONE (13:52)
[2016-08-25] MEDS ORDERED: BUPIVACAINE-MPF/EPI 0.25% 30 ML VIAL INJ ONE (14:00)
[2016-08-25] MEDS ORDERED: LIDOCAINE/EPI 1% 1:100000 20 ML VIAL INJ ONE (14:18)
[2016-08-25] MEDS ORDERED: MIDAZOLAM 2 MG/2 ML VIAL IV ONE (14:35)
[2016-08-25] MEDS ORDERED: METOCLOPRAMIDE 10 MG/2 ML INJ VIAL IVP PRN (14:35)
[2016-08-25] MEDS ORDERED: MORPHINE SULFATE 2 MG/ML SYR IVP PRN (14:35)
[2016-08-25] MEDS ORDERED: MORPHINE SULFATE 4 MG/ML SYR IVP PRN ×2 (14:35)
[2016-08-25 16:00] VITALS: BP 150/76
[2016-08-25] MEDS: CLINDAMYCIN 150 MG CAP PO SCH (18:01)
[2016-08-25] MEDS ORDERED: BACTRIM IV PER PHARMACY MC SCH (21:00)
[2016-08-25] MEDS: MIRTAZAPINE 15 MG TAB PO SCH (21:12)
[2016-08-25] MEDS: SULFAMETH/TRIMETH DS 800/160MG 1 TAB PO SCH (21:13)
[2016-08-25] MEDS: MONTELUKAST SODIUM 10 MG TAB PO SCH (21:13)
[2016-08-25] MEDS ORDERED: HYDROmorphone 1 MG/ML AMP ONE (21:16)
[2016-08-26] MEDS: CLINDAMYCIN 150 MG CAP PO SCH ×4 (00:16→17:49)
[2016-08-26 00:17] VITALS: BP 142/74
[2016-08-26] MEDS: HYDROmorphone 1 MG/ML AMP IVP PRN ×7 (00:17→22:04)
[2016-08-26] MEDS: LEVOTHYROXINE 0.1 MG, LEVOTHYROXINE 0.025 MG PO SCH ×2 (05:22)
[2016-08-26] MEDS: PANTOPRAZOLE 40 MG TABEC PO SCH (05:22)
[2016-08-26 07:06] LABS: BASOPHILS % (AUTO) 0.6 % (0.0-2.0); EOSINOPHILS # (AUTO) 0.2 K/uL (0-0.4); EOSINOPHILS % (AUTO) 3.8 % (0.0-4.0); HEMATOCRIT 35.2 % (36-48); LYMPHOCYTES # (AUTO) 1.6 K/uL (2.5-16.5); LYMPHOCYTES % (AUTO) 25.9 % (20.5-51.1); MEAN CORPUSCULAR HEMOGLOBIN 30 pg (27-31); MEAN CORPUSCULAR HGB CONC 34 g/dL (33-37); MEAN CORPUSCULAR VOLUME 88 fL (80-94); MONOCYTES # (AUTO) 0.5 K/uL (0.8-1.0); MONOCYTES % (AUTO) 8.1 % (1.7-9.3); NEUTROPHILS # (AUTO) 3.7 K/uL (1.8-7.7); NEUTROPHILS % (AUTO) 61.6 % (42.2-75.2); PLATELET COUNT (AUTO) 163 K/uL (140-450); RED BLOOD CELL COUNT(AUTO) 3.99 MIL/uL (4.20-5.40); RED CELL DISTRIBUTION WIDTH 13.4 % (11.6-13.7)
[2016-08-26 08:00] VITALS: BP 128/71
[2016-08-26] MEDS: Z-GUARD PASTE TP SCH ×2 (09:00→21:25)
[2016-08-26] MEDS: SKINTEGRITY HYDROGEL TP SCH (09:00)
[2016-08-26] MEDS: PHENYTOIN 100 MG CAPER PO SCH ×3 (09:01→16:14)
[2016-08-26] MEDS: ASCORBIC ACID 500 MG TAB PO SCH (09:02)
[2016-08-26] MEDS: FUROSEMIDE 40 MG TAB PO SCH (09:02)
[2016-08-26] MEDS: GABAPENTIN 300 MG CAP PO SCH ×3 (09:02→16:13)
[2016-08-26] MEDS: LACTOBACILLUS RHAMNOSUS GG 1 EACH CAP PO SCH (09:02)
[2016-08-26] MEDS: FERROUS SULFATE 325 MG TABEC PO SCH ×2 (09:02→16:14)
[2016-08-26] MEDS: MULTIVITAMIN 1 TAB PO SCH (09:02)
[2016-08-26] MEDS: SULFAMETH/TRIMETH DS 800/160MG 1 TAB PO SCH ×2 (09:02→20:57)
[2016-08-26] MEDS: RIVAROXABAN 10 MG TAB PO SCH (09:04)
[2016-08-26] MEDS: NACL 0.9% 1,000 ML IV SCH (11:14)
[2016-08-26] MEDS: HYDROcodone/APAP 7.5/325 MG 1 TAB PO PRN ×3 (12:18→20:57)
[2016-08-26 16:00] VITALS: BP 132/73
[2016-08-26 20:20] VITALS: BP 130/56
[2016-08-26] MEDS: MONTELUKAST SODIUM 10 MG TAB PO SCH (20:57)
[2016-08-26] MEDS: MIRTAZAPINE 15 MG TAB PO SCH (20:57)
[2016-08-27] VITALS (7 sets, daily range): BP systolic 67–135; BP diastolic 42–76
[2016-08-27] MEDS: CLINDAMYCIN 150 MG CAP PO SCH ×4 (00:13→18:42)
[2016-08-27] MEDS: ACETAMINOPHEN 325 MG TAB PO PRN (00:13)
[2016-08-27] MEDS ORDERED: NACL 0.9% 1,000 ML IV SCH ×2 (00:30→02:05)
[2016-08-27] MEDS: NACL 0.9% 1,000 ML IV SCH ×2 (02:57→20:34)
[2016-08-27] MEDS: LEVOTHYROXINE 0.1 MG, LEVOTHYROXINE 0.025 MG PO SCH ×2 (05:58)
[2016-08-27] MEDS: PANTOPRAZOLE 40 MG TABEC PO SCH (05:58)
[2016-08-27] MEDS: SKINTEGRITY HYDROGEL TP SCH (09:00)
[2016-08-27] MEDS: PHENYTOIN 100 MG CAPER PO SCH ×3 (09:03→16:29)
[2016-08-27] MEDS: MULTIVITAMIN 1 TAB PO SCH (09:03)
[2016-08-27] MEDS: FUROSEMIDE 40 MG TAB PO SCH (09:03)
[2016-08-27] MEDS: FERROUS SULFATE 325 MG TABEC PO SCH ×2 (09:04→16:29)
[2016-08-27] MEDS: SULFAMETH/TRIMETH DS 800/160MG 1 TAB PO SCH ×2 (09:04→20:33)
[2016-08-27] MEDS: LACTOBACILLUS RHAMNOSUS GG 1 EACH CAP PO SCH (09:04)
[2016-08-27] MEDS: GABAPENTIN 300 MG CAP PO SCH ×3 (09:04→16:29)
[2016-08-27] MEDS: Z-GUARD PASTE TP SCH ×2 (09:05→20:33)
[2016-08-27] MEDS: ASCORBIC ACID 500 MG TAB PO SCH (09:05)
[2016-08-27] MEDS: RIVAROXABAN 10 MG TAB PO SCH (09:18)
[2016-08-27] MEDS: HYDROmorphone 1 MG/ML AMP IVP PRN ×2 (10:22→13:39)
[2016-08-27] MEDS: HYDROcodone/APAP 7.5/325 MG 1 TAB PO PRN ×2 (11:23→18:43)
[2016-08-27] MEDS: MONTELUKAST SODIUM 10 MG TAB PO SCH (20:33)
[2016-08-27] MEDS: MIRTAZAPINE 15 MG TAB PO SCH (20:33)
[2016-08-28 00:03] VITALS: BP 115/64
[2016-08-28] MEDS: ACETAMINOPHEN 325 MG TAB PO PRN ×2 (05:12→12:20)
[2016-08-28] MEDS: CLINDAMYCIN 150 MG CAP PO SCH ×5 (06:00→23:55)
[2016-08-28] MEDS: PANTOPRAZOLE 40 MG TABEC PO SCH (06:30)
[2016-08-28] MEDS: LEVOTHYROXINE 0.1 MG, LEVOTHYROXINE 0.025 MG PO SCH ×2 (06:30)
[2016-08-28 08:00] VITALS: BP 127/68
[2016-08-28] MEDS: RIVAROXABAN 10 MG TAB PO SCH (08:00)
[2016-08-28] MEDS: FERROUS SULFATE 325 MG TABEC PO SCH ×2 (08:00→17:00)
[2016-08-28] MEDS: SULFAMETH/TRIMETH DS 800/160MG 1 TAB PO SCH ×2 (08:41→21:00)
[2016-08-28] MEDS: PHENYTOIN 100 MG CAPER PO SCH ×3 (08:42→17:00)
[2016-08-28] MEDS: FUROSEMIDE 40 MG TAB PO SCH (08:42)
[2016-08-28] MEDS: LACTOBACILLUS RHAMNOSUS GG 1 EACH CAP PO SCH (08:42)
[2016-08-28] MEDS: GABAPENTIN 300 MG CAP PO SCH ×3 (08:42→17:00)
[2016-08-28] MEDS: ASCORBIC ACID 500 MG TAB PO SCH (08:43)
[2016-08-28] MEDS: MULTIVITAMIN 1 TAB PO SCH (08:43)
[2016-08-28] MEDS: Z-GUARD PASTE TP SCH ×2 (09:00→21:44)
[2016-08-28] MEDS: SKINTEGRITY HYDROGEL TP SCH (09:00)
[2016-08-28] MEDS ORDERED: MULT-405 PO (12:16)
[2016-08-28] MEDS ORDERED: GABA-638 PO (12:16)
[2016-08-28] MEDS ORDERED: ASCO-166 PO (12:16)
[2016-08-28] MEDS ORDERED: PHEN100C4 PO (12:16)
[2016-08-28] MEDS ORDERED: CLIN150C15 PO (12:16)
[2016-08-28] MEDS ORDERED: FURO40TA9 PO (12:16)
[2016-08-28] MEDS ORDERED: ACET-1182 PO (12:16)
[2016-08-28] MEDS ORDERED: MIRT15TA4 PO (12:16)
[2016-08-28] MEDS ORDERED: FERR-18 PO (12:16)
[2016-08-28] MEDS ORDERED: LACT10CA PO (12:16)
[2016-08-28] MEDS ORDERED: DOCU-67 PO (12:16)
[2016-08-28] MEDS ORDERED: HYDGEL TP (12:16)
[2016-08-28] MEDS ORDERED: SULF1TAB12 PO (12:16)
[2016-08-28] MEDS ORDERED: MONT10TA35 PO (12:16)
[2016-08-28] MEDS ORDERED: ZGUARD TP (12:16)
[2016-08-28] MEDS ORDERED: [UNRECOGNIZED DRUG - CODE] PO (12:16)
[2016-08-28] MEDS ORDERED: XAR10 PO (12:16)
[2016-08-28 16:00] VITALS: BP 139/75
[2016-08-28] MEDS: MIRTAZAPINE 15 MG TAB PO SCH (21:00)
[2016-08-28] MEDS: MONTELUKAST SODIUM 10 MG TAB PO SCH (21:00)
[2016-08-28] MEDS: HYDROcodone/APAP 7.5/325 MG 1 TAB PO PRN (23:55)
[2016-08-28 23:59] VITALS: BP 132/72
[2016-08-29] MEDS: CLINDAMYCIN 150 MG CAP PO SCH ×4 (06:00→23:58)
[2016-08-29] MEDS: PANTOPRAZOLE 40 MG TABEC PO SCH (06:29)
[2016-08-29] MEDS: LEVOTHYROXINE 0.1 MG, LEVOTHYROXINE 0.025 MG PO SCH ×2 (06:29)
[2016-08-29 07:40] VITALS: BP 146/83
[2016-08-29] MEDS: FERROUS SULFATE 325 MG TABEC PO SCH ×2 (08:20→17:00)
[2016-08-29] MEDS: FUROSEMIDE 40 MG TAB PO SCH (08:20)
[2016-08-29] MEDS: GABAPENTIN 300 MG CAP PO SCH ×3 (08:20→17:00)
[2016-08-29] MEDS: PHENYTOIN 100 MG CAPER PO SCH ×3 (08:20→17:00)
[2016-08-29] MEDS: ASCORBIC ACID 500 MG TAB PO SCH (08:20)
[2016-08-29] MEDS: MULTIVITAMIN 1 TAB PO SCH (08:21)
[2016-08-29] MEDS: LACTOBACILLUS RHAMNOSUS GG 1 EACH CAP PO SCH (08:21)
[2016-08-29] MEDS: SULFAMETH/TRIMETH DS 800/160MG 1 TAB PO SCH ×2 (08:21→20:43)
[2016-08-29] MEDS: RIVAROXABAN 10 MG TAB PO SCH (08:23)
[2016-08-29] MEDS: ACETAMINOPHEN 325 MG TAB PO PRN (08:24)
[2016-08-29] MEDS: SKINTEGRITY HYDROGEL TP SCH (09:00)
[2016-08-29] MEDS: Z-GUARD PASTE TP SCH ×2 (09:00→20:44)
[2016-08-29] MEDS: HYDROcodone/APAP 7.5/325 MG 1 TAB PO PRN ×2 (12:13→20:44)
[2016-08-29 16:00] VITALS: BP 125/69
[2016-08-29 20:00] VITALS: BP 127/71
[2016-08-29] MEDS: MONTELUKAST SODIUM 10 MG TAB PO SCH (20:43)
[2016-08-29] MEDS: MIRTAZAPINE 15 MG TAB PO SCH (20:44)
[2016-08-30] VITALS: BP 114/68
[2016-08-30] MEDS: CLINDAMYCIN 150 MG CAP PO SCH ×3 (06:02→17:22)
[2016-08-30] MEDS: LEVOTHYROXINE 0.1 MG, LEVOTHYROXINE 0.025 MG PO SCH ×2 (06:02)
[2016-08-30] MEDS: PANTOPRAZOLE 40 MG TABEC PO SCH (06:02)
[2016-08-30] MEDS: RIVAROXABAN 10 MG TAB PO SCH (08:00)
[2016-08-30] MEDS: FERROUS SULFATE 325 MG TABEC PO SCH ×2 (08:00→17:00)
[2016-08-30] MEDS: FUROSEMIDE 40 MG TAB PO SCH (09:00)
[2016-08-30] MEDS: PHENYTOIN 100 MG CAPER PO SCH ×3 (09:00→17:00)
[2016-08-30] MEDS: MULTIVITAMIN 1 TAB PO SCH (09:00)
[2016-08-30] MEDS: ASCORBIC ACID 500 MG TAB PO SCH (09:00)
[2016-08-30] MEDS: LACTOBACILLUS RHAMNOSUS GG 1 EACH CAP PO SCH (09:00)
[2016-08-30] MEDS: GABAPENTIN 300 MG CAP PO SCH ×3 (09:00→17:00)
[2016-08-30] MEDS: SULFAMETH/TRIMETH DS 800/160MG 1 TAB PO SCH ×2 (09:00→21:19)
[2016-08-30] MEDS: SKINTEGRITY HYDROGEL TP SCH (09:04)
[2016-08-30] MEDS: Z-GUARD PASTE TP SCH ×2 (09:05→21:23)
[2016-08-30] MEDS: MONTELUKAST SODIUM 10 MG TAB PO SCH (21:19)
[2016-08-30] MEDS: HYDROcodone/APAP 7.5/325 MG 1 TAB PO PRN (21:19)
[2016-08-30] MEDS: MIRTAZAPINE 15 MG TAB PO SCH (21:20)
[2016-08-31] VITALS: BP 150/75
[2016-08-31] MEDS: CLINDAMYCIN 150 MG CAP PO SCH ×4 (00:40→17:13)
[2016-08-31] MEDS: LEVOTHYROXINE 0.1 MG, LEVOTHYROXINE 0.025 MG PO SCH ×2 (06:15)
[2016-08-31] MEDS: PANTOPRAZOLE 40 MG TABEC PO SCH (06:15)
[2016-08-31 08:00] VITALS: BP 124/78
[2016-08-31] MEDS: FERROUS SULFATE 325 MG TABEC PO SCH ×2 (08:00→17:00)
[2016-08-31] MEDS: LACTOBACILLUS RHAMNOSUS GG 1 EACH CAP PO SCH (08:37)
[2016-08-31] MEDS: PHENYTOIN 100 MG CAPER PO SCH ×3 (08:37→17:13)
[2016-08-31] MEDS: GABAPENTIN 300 MG CAP PO SCH ×3 (08:37→17:13)
[2016-08-31] MEDS: FUROSEMIDE 40 MG TAB PO SCH (08:38)
[2016-08-31] MEDS: ASCORBIC ACID 500 MG TAB PO SCH (08:38)
[2016-08-31] MEDS: SULFAMETH/TRIMETH DS 800/160MG 1 TAB PO SCH ×2 (08:38→20:25)
[2016-08-31] MEDS: RIVAROXABAN 10 MG TAB PO SCH (08:43)
[2016-08-31] MEDS: MULTIVITAMIN 1 TAB PO SCH (08:48)
[2016-08-31] MEDS: SKINTEGRITY HYDROGEL TP SCH (11:20)
[2016-08-31] MEDS: Z-GUARD PASTE TP SCH ×2 (11:20→21:28)
[2016-08-31] MEDS: HYDROcodone/APAP 7.5/325 MG 1 TAB PO PRN ×2 (11:21→20:33)
[2016-08-31 16:00] VITALS: BP 130/77
[2016-08-31] MEDS: MONTELUKAST SODIUM 10 MG TAB PO SCH (20:25)
[2016-08-31] MEDS: MIRTAZAPINE 15 MG TAB PO SCH (20:25)
[2016-09-01] VITALS: BP 134/82
[2016-09-01] MEDS: CLINDAMYCIN 150 MG CAP PO SCH
[2016-09-01] MEDS: PANTOPRAZOLE 40 MG TABEC PO SCH (06:27)
[2016-09-01] MEDS: LEVOTHYROXINE 0.1 MG, LEVOTHYROXINE 0.025 MG PO SCH ×2 (06:27)
[2016-09-01 08:00] VITALS: BP 139/75
[2016-09-01] MEDS: LACTOBACILLUS RHAMNOSUS GG 1 EACH CAP PO SCH (08:32)
[2016-09-01] MEDS: PHENYTOIN 100 MG CAPER PO SCH ×3 (08:32→17:00)
[2016-09-01] MEDS: SULFAMETH/TRIMETH DS 800/160MG 1 TAB PO SCH ×2 (08:32→20:53)
[2016-09-01] MEDS: GABAPENTIN 300 MG CAP PO SCH ×3 (08:33→17:00)
[2016-09-01] MEDS: FERROUS SULFATE 325 MG TABEC PO SCH ×2 (08:33→17:00)
[2016-09-01] MEDS: ASCORBIC ACID 500 MG TAB PO SCH (08:33)
[2016-09-01] MEDS: FUROSEMIDE 40 MG TAB PO SCH (08:33)
[2016-09-01] MEDS: RIVAROXABAN 10 MG TAB PO SCH (08:34)
[2016-09-01] MEDS: Z-GUARD PASTE TP SCH ×2 (08:35→20:54)
[2016-09-01] MEDS: MULTIVITAMIN 1 TAB PO SCH (08:35)
[2016-09-01] MEDS: SKINTEGRITY HYDROGEL TP SCH (08:35)
[2016-09-01] MEDS: HYDROcodone/APAP 7.5/325 MG 1 TAB PO PRN (08:37)
[2016-09-01 15:29] VITALS: BP 93/57
[2016-09-01] MEDS: MIRTAZAPINE 15 MG TAB PO SCH (20:53)
[2016-09-01] MEDS: MONTELUKAST SODIUM 10 MG TAB PO SCH (20:54)
[2016-09-02 06:24] VITALS: BP 110/62
[2016-09-02] MEDS: LEVOTHYROXINE 0.1 MG, LEVOTHYROXINE 0.025 MG PO SCH ×2 (06:24)
[2016-09-02] MEDS: PANTOPRAZOLE 40 MG TABEC PO SCH (06:24)
[2016-09-02 08:00] VITALS: BP 107/63
[2016-09-02] MEDS: FUROSEMIDE 40 MG TAB PO SCH (09:02)
[2016-09-02] MEDS: GABAPENTIN 300 MG CAP PO SCH ×3 (09:02→17:40)
[2016-09-02] MEDS: ASCORBIC ACID 500 MG TAB PO SCH (09:02)
[2016-09-02] MEDS: MULTIVITAMIN 1 TAB PO SCH (09:02)
[2016-09-02] MEDS: PHENYTOIN 100 MG CAPER PO SCH ×3 (09:02→17:40)
[2016-09-02] MEDS: HYDROcodone/APAP 7.5/325 MG 1 TAB PO PRN ×3 (09:03→17:40)
[2016-09-02] MEDS: SULFAMETH/TRIMETH DS 800/160MG 1 TAB PO SCH (09:03)
[2016-09-02] MEDS: FERROUS SULFATE 325 MG TABEC PO SCH ×2 (09:03→17:40)
[2016-09-02] MEDS: LACTOBACILLUS RHAMNOSUS GG 1 EACH CAP PO SCH (09:03)
[2016-09-02] MEDS: RIVAROXABAN 10 MG TAB PO SCH (09:04)
[2016-09-02] MEDS ORDERED: LORazepam 1 MG TAB PO PRN (09:20)
[2016-09-02] MEDS: SKINTEGRITY HYDROGEL TP SCH (09:37)
[2016-09-02] MEDS ORDERED: ESCITALOPRAM 20 MG TAB PO SCH (09:38)
[2016-09-02] MEDS: Z-GUARD PASTE TP SCH ×2 (09:38→20:38)
[2016-09-02 16:00] VITALS: BP 141/75
[2016-09-02 20:00] VITALS: BP 105/62
[2016-09-02] MEDS: MONTELUKAST SODIUM 10 MG TAB PO SCH (20:37)
[2016-09-02] MEDS: MIRTAZAPINE 15 MG TAB PO SCH (20:37)
[2016-09-03 00:35] VITALS: BP 106/58
[2016-09-03] MEDS: PANTOPRAZOLE 40 MG TABEC PO SCH (05:37)
[2016-09-03] MEDS: LEVOTHYROXINE 0.1 MG, LEVOTHYROXINE 0.025 MG PO SCH ×2 (05:38)
[2016-09-03 08:00] VITALS: BP 111/69
[2016-09-03] MEDS: ESCITALOPRAM 20 MG TAB PO SCH (08:53)
[2016-09-03] MEDS: LACTOBACILLUS RHAMNOSUS GG 1 EACH CAP PO SCH (08:53)
[2016-09-03] MEDS: GABAPENTIN 300 MG CAP PO SCH ×3 (08:54→16:43)
[2016-09-03] MEDS: PHENYTOIN 100 MG CAPER PO SCH ×3 (08:54→16:43)
[2016-09-03] MEDS: FERROUS SULFATE 325 MG TABEC PO SCH ×2 (08:54→16:35)
[2016-09-03] MEDS: ASCORBIC ACID 500 MG TAB PO SCH (08:55)
[2016-09-03] MEDS: FUROSEMIDE 40 MG TAB PO SCH (08:57)
[2016-09-03] MEDS: RIVAROXABAN 10 MG TAB PO SCH (08:57)
[2016-09-03] MEDS: HYDROcodone/APAP 7.5/325 MG 1 TAB PO PRN ×2 (08:58→13:08)
[2016-09-03] MEDS: MULTIVITAMIN 1 TAB PO SCH (08:59)
[2016-09-03 16:00] VITALS: BP 108/66
[2016-09-03] MEDS: MORPHINE SULFATE 2 MG/ML SYR IVP PRN ×2 (16:43→20:41)
[2016-09-03 16:44] LABS: APPEARANCE,URINE CLEAR (CLEAR); BILIRUBIN,URINE NEGATIVE (NEGATIVE); BLOOD, URINE 3+ (NEGATIVE); COLOR,URINE YELLOW (YELLOW); LEUKOCYTE ESTERASE ,URINE 1+ (NEGATIVE); NITRITE, URINE NEGATIVE (NEGATIVE); PROTEIN,URINE NEGATIVE (NEGATIVE); UGLUCOSE NEGATIVE (NEGATIVE); UROBILINOGEN,URINE 0.2 EU/dL (0.2 - 1)
[2016-09-03 16:51] LABS: BACTERIA,URINE FEW /HPF (None Seen)
[2016-09-03] MEDS: Z-GUARD PASTE TP SCH ×2 (17:30→20:41)
[2016-09-03] MEDS: SKINTEGRITY HYDROGEL TP SCH (17:30)
[2016-09-03 20:00] VITALS: BP 120/68
[2016-09-03] MEDS: MIRTAZAPINE 15 MG TAB PO SCH (20:40)
[2016-09-03] MEDS: MONTELUKAST SODIUM 10 MG TAB PO SCH (20:40)
[2016-09-03 23:58] VITALS: BP 100/53
[2016-09-04 01:23] VITALS: BP 122/69
[2016-09-04] MEDS: MORPHINE SULFATE 2 MG/ML SYR IVP PRN ×5 (01:28→16:23)
[2016-09-04 05:21] VITALS: BP 123/71
[2016-09-04] MEDS: LEVOTHYROXINE 0.1 MG, LEVOTHYROXINE 0.025 MG PO SCH ×2 (05:33)
[2016-09-04] MEDS: PANTOPRAZOLE 40 MG TABEC PO SCH (05:33)
[2016-09-04] MEDS: ASCORBIC ACID 500 MG TAB PO SCH (09:34)
[2016-09-04] MEDS: MULTIVITAMIN 1 TAB PO SCH (09:34)
[2016-09-04] MEDS: FUROSEMIDE 40 MG TAB PO SCH (09:34)
[2016-09-04] MEDS: GABAPENTIN 300 MG CAP PO SCH ×3 (09:35→16:22)
[2016-09-04] MEDS: ESCITALOPRAM 20 MG TAB PO SCH (09:35)
[2016-09-04] MEDS: LACTOBACILLUS RHAMNOSUS GG 1 EACH CAP PO SCH (09:35)
[2016-09-04] MEDS: FERROUS SULFATE 325 MG TABEC PO SCH ×2 (09:35→16:22)
[2016-09-04] MEDS: PHENYTOIN 100 MG CAPER PO SCH ×3 (09:35→16:22)
[2016-09-04] MEDS: Z-GUARD PASTE TP SCH ×2 (09:36→21:37)
[2016-09-04] MEDS: SKINTEGRITY HYDROGEL TP SCH (09:36)
[2016-09-04] MEDS ORDERED: THERAHONEY GEL 42.5 GM TP PRN (09:40)
[2016-09-04] MEDS: RIVAROXABAN 10 MG TAB PO SCH (09:46)
[2016-09-04] MEDS: THERAHONEY GEL 42.5 GM TP SCH (12:58)
[2016-09-04 16:00] VITALS: BP 123/68
[2016-09-04] MEDS: HYDROcodone/APAP 7.5/325 MG 1 TAB PO PRN (17:47)
[2016-09-04 20:45] VITALS: BP 118/67
[2016-09-04] MEDS: MIRTAZAPINE 15 MG TAB PO SCH (21:36)
[2016-09-04] MEDS: MONTELUKAST SODIUM 10 MG TAB PO SCH (21:37)
[2016-09-05] MEDS: LEVOTHYROXINE 0.1 MG, LEVOTHYROXINE 0.025 MG PO SCH ×2 (05:20)
[2016-09-05] MEDS: PANTOPRAZOLE 40 MG TABEC PO SCH (05:21)
[2016-09-05] MEDS: MORPHINE SULFATE 2 MG/ML SYR IVP PRN ×6 (05:21→22:30)
[2016-09-05 08:00] VITALS: BP 109/65
[2016-09-05] MEDS: ESCITALOPRAM 20 MG TAB PO SCH (08:37)
[2016-09-05] MEDS: FERROUS SULFATE 325 MG TABEC PO SCH ×2 (08:38→16:04)
[2016-09-05] MEDS: PHENYTOIN 100 MG CAPER PO SCH ×3 (08:38→16:04)
[2016-09-05] MEDS: LACTOBACILLUS RHAMNOSUS GG 1 EACH CAP PO SCH (08:38)
[2016-09-05] MEDS: MULTIVITAMIN 1 TAB PO SCH (08:38)
[2016-09-05] MEDS: ASCORBIC ACID 500 MG TAB PO SCH (08:38)
[2016-09-05] MEDS: FUROSEMIDE 40 MG TAB PO SCH (08:38)
[2016-09-05] MEDS: GABAPENTIN 300 MG CAP PO SCH ×3 (08:38→16:04)
[2016-09-05] MEDS: RIVAROXABAN 10 MG TAB PO SCH (08:53)
[2016-09-05] MEDS: Z-GUARD PASTE TP SCH ×2 (08:54→21:30)
[2016-09-05] MEDS: SKINTEGRITY HYDROGEL TP SCH (08:55)
[2016-09-05] MEDS ORDERED: SULFAMETH/TRIMETH DS 800/160MG 1 TAB PO SCH (09:06)
[2016-09-05] MEDS ORDERED: DOCUSATE SODIUM 100 MG GELCAP PO SCH (09:15)
[2016-09-05 12:00] VITALS: BP 111/61
[2016-09-05] MEDS: THERAHONEY GEL 42.5 GM TP SCH (12:15)
[2016-09-05 15:32] VITALS: BP 133/70
[2016-09-05 20:00] VITALS: BP 109/69
[2016-09-05] MEDS: SULFAMETH/TRIMETH DS 800/160MG 1 TAB PO SCH (21:29)
[2016-09-05] MEDS: ATORVASTATIN 20 MG TAB PO SCH (21:30)
[2016-09-05] MEDS: MONTELUKAST SODIUM 10 MG TAB PO SCH (21:30)
[2016-09-05] MEDS: MIRTAZAPINE 15 MG TAB PO SCH (21:30)
[2016-09-05] MEDS: DOCUSATE SODIUM 100 MG GELCAP PO SCH (21:30)
[2016-09-05] MEDS ORDERED: ONDANSETRON 4 MG ODT SL PRN (23:45)
[2016-09-05] MEDS ORDERED: HYDROcodone/APAP 7.5/325 MG 1 TAB PO PRN (23:45)
[2016-09-06] VITALS: BP 100/43
[2016-09-06] MEDS: PANTOPRAZOLE 40 MG TABEC PO SCH (05:52)
[2016-09-06] MEDS: LEVOTHYROXINE 0.1 MG, LEVOTHYROXINE 0.025 MG PO SCH ×2 (05:52)
[2016-09-06 08:00] VITALS: BP 129/67
[2016-09-06] MEDS: FERROUS SULFATE 325 MG TABEC PO SCH ×2 (08:36→17:27)
[2016-09-06] MEDS: RIVAROXABAN 10 MG TAB PO SCH (08:39)
[2016-09-06] MEDS: MORPHINE SULFATE 2 MG/ML SYR IVP PRN ×3 (09:13→23:22)
[2016-09-06] MEDS: SULFAMETH/TRIMETH DS 800/160MG 1 TAB PO SCH ×2 (09:17→21:03)
[2016-09-06] MEDS: PHENYTOIN 100 MG CAPER PO SCH ×3 (09:17→17:27)
[2016-09-06] MEDS: LACTOBACILLUS RHAMNOSUS GG 1 EACH CAP PO SCH (09:17)
[2016-09-06] MEDS: ASCORBIC ACID 500 MG TAB PO SCH (09:18)
[2016-09-06] MEDS: FUROSEMIDE 40 MG TAB PO SCH (09:18)
[2016-09-06] MEDS: MULTIVITAMIN 1 TAB PO SCH (09:18)
[2016-09-06] MEDS: GABAPENTIN 300 MG CAP PO SCH ×3 (09:18→17:27)
[2016-09-06] MEDS: Z-GUARD PASTE TP SCH ×2 (09:19→21:08)
[2016-09-06] MEDS: DOCUSATE SODIUM 100 MG GELCAP PO SCH ×2 (09:19→21:03)
[2016-09-06] MEDS: SKINTEGRITY HYDROGEL TP SCH (09:19)
[2016-09-06 09:41] LABS: BASOPHILS # (AUTO) 0.1 K/uL (0.00-0.22); BASOPHILS % (AUTO) 2.9 % (0.0-2.0); EOSINOPHILS # (AUTO) 0.4 K/uL (0-0.4); EOSINOPHILS % (AUTO) 8.1 % (0.0-4.0); HEMATOCRIT 39.3 % (36-48); LYMPHOCYTES # (AUTO) 1.5 K/uL (2.5-16.5); LYMPHOCYTES % (AUTO) 30.6 % (20.5-51.1); MEAN CORPUSCULAR HEMOGLOBIN 29 pg (27-31); MEAN CORPUSCULAR HGB CONC 33 g/dL (33-37); MEAN CORPUSCULAR VOLUME 89 fL (80-94); MONOCYTES # (AUTO) 0.3 K/uL (0.8-1.0); MONOCYTES % (AUTO) 6.7 % (1.7-9.3); NEUTROPHILS # (AUTO) 2.7 K/uL (1.8-7.7); NEUTROPHILS % (AUTO) 51.7 % (42.2-75.2); PLATELET COUNT (AUTO) 190 K/uL (140-450); RED BLOOD CELL COUNT(AUTO) 4.43 MIL/uL (4.20-5.40); RED CELL DISTRIBUTION WIDTH 14.4 % (11.6-13.7)
[2016-09-06 10:10] LABS: ANION GAP 10.8 (8-16); CALCIUM 8.9 mg/dL (8.5-10.1); CARBON DIOXIDE 29.8 mmol/L (21-32); CREATININE 0.7 mg/dL (0.6-1.3); POTASSIUM 3.6 mmol/L (3.5-5.1)
[2016-09-06 10:13] LABS: PHENYTOIN (DILANTIN) 15.5 ug/ml (10.0-20.0)
[2016-09-06 12:00] VITALS: BP 139/74
[2016-09-06] MEDS: THERAHONEY GEL 42.5 GM TP SCH (12:58)
[2016-09-06] MEDS: THERAHONEY GEL 42.5 GM TP PRN (21:03)
[2016-09-06] MEDS: ATORVASTATIN 20 MG TAB PO SCH (21:04)
[2016-09-06] MEDS: MONTELUKAST SODIUM 10 MG TAB PO SCH (21:04)
[2016-09-06] MEDS: MIRTAZAPINE 15 MG TAB PO SCH (21:04)
[2016-09-07] VITALS: BP 134/81
[2016-09-07] MEDS: PANTOPRAZOLE 40 MG TABEC PO SCH (06:08)
[2016-09-07] MEDS: LEVOTHYROXINE 0.1 MG, LEVOTHYROXINE 0.025 MG PO SCH ×2 (06:08)
[2016-09-07 08:00] VITALS: BP 129/77
[2016-09-07] MEDS: FERROUS SULFATE 325 MG TABEC PO SCH ×2 (08:00→17:51)
[2016-09-07] MEDS: Z-GUARD PASTE TP SCH ×2 (09:00→20:47)
[2016-09-07] MEDS: ASCORBIC ACID 500 MG TAB PO SCH (09:00)
[2016-09-07] MEDS: RIVAROXABAN 10 MG TAB PO SCH (09:50)
[2016-09-07] MEDS: MULTIVITAMIN 1 TAB PO SCH (09:51)
[2016-09-07] MEDS: SULFAMETH/TRIMETH DS 800/160MG 1 TAB PO SCH ×2 (09:51→20:45)
[2016-09-07] MEDS: LACTOBACILLUS RHAMNOSUS GG 1 EACH CAP PO SCH (09:51)
[2016-09-07] MEDS: PHENYTOIN 100 MG CAPER PO SCH ×3 (09:51→17:51)
[2016-09-07] MEDS: FUROSEMIDE 40 MG TAB PO SCH (09:51)
[2016-09-07] MEDS: GABAPENTIN 300 MG CAP PO SCH ×3 (09:51→17:51)
[2016-09-07] MEDS: DOCUSATE SODIUM 100 MG GELCAP PO SCH ×2 (09:52→20:45)
[2016-09-07] MEDS: MORPHINE SULFATE 2 MG/ML SYR IVP PRN ×3 (09:53→17:56)
[2016-09-07 14:00] VITALS: BP 113/65
[2016-09-07] MEDS: SKINTEGRITY HYDROGEL TP SCH (14:03)
[2016-09-07] MEDS: THERAHONEY GEL 42.5 GM TP SCH (14:04)
[2016-09-07] MEDS: ATORVASTATIN 20 MG TAB PO SCH (20:45)
[2016-09-07] MEDS: MIRTAZAPINE 15 MG TAB PO SCH (20:45)
[2016-09-07] MEDS: MONTELUKAST SODIUM 10 MG TAB PO SCH (20:46)
[2016-09-07 22:32] VITALS: BP 120/68
[2016-09-07 22:38] VITALS: BP 136/71
[2016-09-08] MEDS: PANTOPRAZOLE 40 MG TABEC PO SCH (05:40)
[2016-09-08] MEDS: LEVOTHYROXINE 0.1 MG, LEVOTHYROXINE 0.025 MG PO SCH ×2 (05:41)
[2016-09-08 08:00] VITALS: BP 146/81
[2016-09-08] MEDS: MORPHINE SULFATE 2 MG/ML SYR IVP PRN ×4 (08:45→20:41)
[2016-09-08] MEDS: FERROUS SULFATE 325 MG TABEC PO SCH ×2 (08:46→16:46)
[2016-09-08] MEDS: RIVAROXABAN 10 MG TAB PO SCH (08:50)
[2016-09-08] MEDS: LACTOBACILLUS RHAMNOSUS GG 1 EACH CAP PO SCH (08:52)
[2016-09-08] MEDS: DOCUSATE SODIUM 100 MG GELCAP PO SCH ×2 (08:52→20:41)
[2016-09-08] MEDS: SULFAMETH/TRIMETH DS 800/160MG 1 TAB PO SCH ×2 (08:52→20:42)
[2016-09-08] MEDS: Z-GUARD PASTE TP SCH ×2 (08:53→20:43)
[2016-09-08] MEDS: GABAPENTIN 300 MG CAP PO SCH ×3 (08:53→16:46)
[2016-09-08] MEDS: PHENYTOIN 100 MG CAPER PO SCH ×3 (08:53→16:46)
[2016-09-08] MEDS: MULTIVITAMIN 1 TAB PO SCH (08:53)
[2016-09-08] MEDS: SKINTEGRITY HYDROGEL TP SCH (08:53)
[2016-09-08] MEDS: ASCORBIC ACID 500 MG TAB PO SCH (08:53)
[2016-09-08] MEDS: FUROSEMIDE 40 MG TAB PO SCH (08:53)
[2016-09-08] MEDS ORDERED: LIDOCAINE JELLY 2% 30 ML TUBE TP SCH (11:37)
[2016-09-08] MEDS: THERAHONEY GEL 42.5 GM TP SCH (13:06)
[2016-09-08 16:00] VITALS: BP 105/61
[2016-09-08 20:32] VITALS: BP 107/62
[2016-09-08] MEDS: MIRTAZAPINE 15 MG TAB PO SCH (20:41)
[2016-09-08] MEDS: ATORVASTATIN 20 MG TAB PO SCH (20:42)
[2016-09-08] MEDS: MONTELUKAST SODIUM 10 MG TAB PO SCH (20:42)
[2016-09-09] MEDS: PANTOPRAZOLE 40 MG TABEC PO SCH (06:14)
[2016-09-09] MEDS: LEVOTHYROXINE 0.1 MG, LEVOTHYROXINE 0.025 MG PO SCH ×2 (06:15)
[2016-09-09 08:00] VITALS: BP 120/69
[2016-09-09] MEDS: PHENYTOIN 100 MG CAPER PO SCH ×3 (08:55→17:22)
[2016-09-09] MEDS: LACTOBACILLUS RHAMNOSUS GG 1 EACH CAP PO SCH (08:55)
[2016-09-09] MEDS: DOCUSATE SODIUM 100 MG GELCAP PO SCH ×2 (08:56→20:30)
[2016-09-09] MEDS: SULFAMETH/TRIMETH DS 800/160MG 1 TAB PO SCH ×2 (08:56→20:30)
[2016-09-09] MEDS: FERROUS SULFATE 325 MG TABEC PO SCH ×2 (08:56→17:22)
[2016-09-09] MEDS: GABAPENTIN 300 MG CAP PO SCH ×3 (08:56→17:22)
[2016-09-09] MEDS: FUROSEMIDE 40 MG TAB PO SCH (08:56)
[2016-09-09] MEDS: ASCORBIC ACID 500 MG TAB PO SCH (08:56)
[2016-09-09] MEDS: MULTIVITAMIN 1 TAB PO SCH (08:56)
[2016-09-09] MEDS: RIVAROXABAN 10 MG TAB PO SCH (08:57)
[2016-09-09] MEDS: Z-GUARD PASTE TP SCH ×2 (08:58→20:30)
[2016-09-09] MEDS: MORPHINE SULFATE 2 MG/ML SYR IVP PRN ×4 (08:58→21:47)
[2016-09-09] MEDS: SKINTEGRITY HYDROGEL TP SCH (08:58)
[2016-09-09] MEDS: THERAHONEY GEL 42.5 GM TP SCH (12:27)
[2016-09-09 16:00] VITALS: BP 91/51
[2016-09-09 20:00] VITALS: BP 105/66
[2016-09-09] MEDS: MIRTAZAPINE 15 MG TAB PO SCH (20:30)
[2016-09-09] MEDS: MONTELUKAST SODIUM 10 MG TAB PO SCH (20:30)
[2016-09-09] MEDS: ATORVASTATIN 20 MG TAB PO SCH (20:30)
[2016-09-10] VITALS: BP 119/59
[2016-09-10] MEDS: LEVOTHYROXINE 0.1 MG, LEVOTHYROXINE 0.025 MG PO SCH ×2 (06:30)
[2016-09-10] MEDS: PANTOPRAZOLE 40 MG TABEC PO SCH (06:30)
[2016-09-10 08:00] VITALS: BP 99/60
[2016-09-10] MEDS: RIVAROXABAN 10 MG TAB PO SCH (08:00)
[2016-09-10] MEDS: FERROUS SULFATE 325 MG TABEC PO SCH ×2 (08:00→16:11)
[2016-09-10] MEDS: LACTOBACILLUS RHAMNOSUS GG 1 EACH CAP PO SCH (09:00)
[2016-09-10] MEDS: ASCORBIC ACID 500 MG TAB PO SCH (09:00)
[2016-09-10] MEDS: MULTIVITAMIN 1 TAB PO SCH (09:00)
[2016-09-10] MEDS: GABAPENTIN 300 MG CAP PO SCH ×3 (09:00→16:11)
[2016-09-10] MEDS: PHENYTOIN 100 MG CAPER PO SCH ×3 (09:00→16:10)
[2016-09-10] MEDS: FUROSEMIDE 40 MG TAB PO SCH (09:00)
[2016-09-10] MEDS: DOCUSATE SODIUM 100 MG GELCAP PO SCH ×2 (09:00→20:07)
[2016-09-10] MEDS: HYDROcodone/APAP 7.5/325 MG 1 TAB PO PRN (09:05)
[2016-09-10] MEDS: Z-GUARD PASTE TP SCH ×2 (09:09→20:08)
[2016-09-10] MEDS: SKINTEGRITY HYDROGEL TP SCH (09:09)
[2016-09-10] MEDS: MORPHINE SULFATE 2 MG/ML SYR IVP PRN ×3 (12:31→20:08)
[2016-09-10] MEDS: THERAHONEY GEL 42.5 GM TP SCH (12:54)
[2016-09-10 16:00] VITALS: BP 112/61
[2016-09-10 20:00] VITALS: BP 124/73
[2016-09-10] MEDS: ATORVASTATIN 20 MG TAB PO SCH (20:07)
[2016-09-10] MEDS: MONTELUKAST SODIUM 10 MG TAB PO SCH (20:08)
[2016-09-10] MEDS: MIRTAZAPINE 15 MG TAB PO SCH (20:08)
[2016-09-11] MEDS: MORPHINE SULFATE 2 MG/ML SYR IVP PRN ×5 (05:06→23:41)
[2016-09-11] MEDS: LEVOTHYROXINE 0.1 MG, LEVOTHYROXINE 0.025 MG PO SCH ×2 (05:57)
[2016-09-11] MEDS: PANTOPRAZOLE 40 MG TABEC PO SCH (05:57)
[2016-09-11 08:00] VITALS: BP 150/75
[2016-09-11] MEDS: RIVAROXABAN 10 MG TAB PO SCH (08:00)
[2016-09-11] MEDS: FERROUS SULFATE 325 MG TABEC PO SCH ×2 (08:00→16:47)
[2016-09-11] MEDS: Z-GUARD PASTE TP SCH ×2 (09:00→20:59)
[2016-09-11] MEDS: SKINTEGRITY HYDROGEL TP SCH (09:00)
[2016-09-11] MEDS: FUROSEMIDE 40 MG TAB PO SCH (09:46)
[2016-09-11] MEDS: PHENYTOIN 100 MG CAPER PO SCH ×3 (09:46→16:47)
[2016-09-11] MEDS: LACTOBACILLUS RHAMNOSUS GG 1 EACH CAP PO SCH (09:46)
[2016-09-11] MEDS: DOCUSATE SODIUM 100 MG GELCAP PO SCH ×2 (09:46→20:20)
[2016-09-11] MEDS: MULTIVITAMIN 1 TAB PO SCH (09:47)
[2016-09-11] MEDS: GABAPENTIN 300 MG CAP PO SCH ×3 (09:47→16:47)
[2016-09-11] MEDS: ASCORBIC ACID 500 MG TAB PO SCH (09:47)
[2016-09-11] MEDS: THERAHONEY GEL 42.5 GM TP SCH (11:24)
[2016-09-11] MEDS: HYDROcodone/APAP 7.5/325 MG 1 TAB PO PRN ×2 (11:31→16:48)
[2016-09-11 16:00] VITALS: BP 124/84
[2016-09-11] MEDS: MIRTAZAPINE 15 MG TAB PO SCH (20:21)
[2016-09-11] MEDS: MONTELUKAST SODIUM 10 MG TAB PO SCH (20:21)
[2016-09-11] MEDS: ATORVASTATIN 20 MG TAB PO SCH (20:21)
[2016-09-11 23:20] VITALS: BP 114/64
[2016-09-12] MEDS: PANTOPRAZOLE 40 MG TABEC PO SCH (05:40)
[2016-09-12] MEDS: LEVOTHYROXINE 0.1 MG, LEVOTHYROXINE 0.025 MG PO SCH ×2 (05:41)
[2016-09-12 08:00] VITALS: BP 119/71
[2016-09-12] MEDS: FERROUS SULFATE 325 MG TABEC PO SCH ×2 (08:00→16:16)
[2016-09-12] MEDS: RIVAROXABAN 10 MG TAB PO SCH (08:00)
[2016-09-12] MEDS: SKINTEGRITY HYDROGEL TP SCH (09:00)
[2016-09-12] MEDS: Z-GUARD PASTE TP SCH ×2 (09:00→21:16)
[2016-09-12] MEDS: LACTOBACILLUS RHAMNOSUS GG 1 EACH CAP PO SCH (09:18)
[2016-09-12] MEDS: DOCUSATE SODIUM 100 MG GELCAP PO SCH ×2 (09:18→21:15)
[2016-09-12] MEDS: PHENYTOIN 100 MG CAPER PO SCH ×3 (09:19→16:15)
[2016-09-12] MEDS: FUROSEMIDE 40 MG TAB PO SCH (09:19)
[2016-09-12] MEDS: MULTIVITAMIN 1 TAB PO SCH (09:20)
[2016-09-12] MEDS: GABAPENTIN 300 MG CAP PO SCH ×3 (09:20→16:16)
[2016-09-12] MEDS: ASCORBIC ACID 500 MG TAB PO SCH (09:21)
[2016-09-12] MEDS: MORPHINE SULFATE 2 MG/ML SYR IVP PRN ×3 (09:22→21:32)
[2016-09-12] MEDS: HYDROcodone/APAP 10/325 MG 1 TAB TAB PO PRN (13:25)
[2016-09-12] MEDS: THERAHONEY GEL 42.5 GM TP SCH (13:45)
[2016-09-12 16:00] VITALS: BP 101/57
[2016-09-12] MEDS: ACETAMINOPHEN 325 MG TAB PO PRN (16:17)
[2016-09-12] MEDS: ATORVASTATIN 20 MG TAB PO SCH (21:15)
[2016-09-12] MEDS: MONTELUKAST SODIUM 10 MG TAB PO SCH (21:16)
[2016-09-12] MEDS: MIRTAZAPINE 15 MG TAB PO SCH (21:16)
[2016-09-12 21:19] VITALS: BP 112/70
[2016-09-13] MEDS: PANTOPRAZOLE 40 MG TABEC PO SCH (06:03)
[2016-09-13] MEDS: LEVOTHYROXINE 0.1 MG, LEVOTHYROXINE 0.025 MG PO SCH ×2 (06:04)
[2016-09-13 08:00] VITALS: BP 119/52
[2016-09-13] MEDS: RIVAROXABAN 10 MG TAB PO SCH (08:00)
[2016-09-13] MEDS: FERROUS SULFATE 325 MG TABEC PO SCH ×2 (08:00→18:05)
[2016-09-13] MEDS: DOCUSATE SODIUM 100 MG GELCAP PO SCH ×2 (08:57→21:17)
[2016-09-13] MEDS: LACTOBACILLUS RHAMNOSUS GG 1 EACH CAP PO SCH (08:57)
[2016-09-13] MEDS: PHENYTOIN 100 MG CAPER PO SCH ×3 (08:57→18:05)
[2016-09-13] MEDS: FUROSEMIDE 40 MG TAB PO SCH (08:58)
[2016-09-13] MEDS: GABAPENTIN 300 MG CAP PO SCH ×3 (08:58→18:05)
[2016-09-13] MEDS: SKINTEGRITY HYDROGEL TP SCH (09:00)
[2016-09-13] MEDS: ASCORBIC ACID 500 MG TAB PO SCH (09:00)
[2016-09-13] MEDS: Z-GUARD PASTE TP SCH ×2 (09:00→21:19)
[2016-09-13] MEDS: MULTIVITAMIN 1 TAB PO SCH (09:00)
[2016-09-13] MEDS: MORPHINE SULFATE 2 MG/ML SYR IVP PRN ×2 (13:50→21:28)
[2016-09-13] MEDS: THERAHONEY GEL 42.5 GM TP SCH (13:51)
[2016-09-13 16:00] VITALS: BP 124/75
[2016-09-13] MEDS: ATORVASTATIN 20 MG TAB PO SCH (21:17)
[2016-09-13] MEDS: MIRTAZAPINE 15 MG TAB PO SCH (21:17)
[2016-09-13] MEDS: MONTELUKAST SODIUM 10 MG TAB PO SCH (21:18)
[2016-09-13 21:25] VITALS: BP 115/70
[2016-09-14 00:35] VITALS: BP 98/61
[2016-09-14] MEDS: PANTOPRAZOLE 40 MG TABEC PO SCH (05:46)
[2016-09-14] MEDS: LEVOTHYROXINE 0.1 MG, LEVOTHYROXINE 0.025 MG PO SCH ×2 (05:46)
[2016-09-14] MEDS: FERROUS SULFATE 325 MG TABEC PO SCH ×2 (07:30→16:20)
[2016-09-14 08:00] VITALS: BP 142/75
[2016-09-14] MEDS: MULTIVITAMIN 1 TAB PO SCH (08:00)
[2016-09-14] MEDS: RIVAROXABAN 10 MG TAB PO SCH (08:00)
[2016-09-14] MEDS: SKINTEGRITY HYDROGEL TP SCH (09:00)
[2016-09-14] MEDS: ASCORBIC ACID 500 MG TAB PO SCH (09:00)
[2016-09-14] MEDS: PHENYTOIN 100 MG CAPER PO SCH ×3 (09:00→16:20)
[2016-09-14] MEDS: GABAPENTIN 300 MG CAP PO SCH ×3 (09:00→16:20)
[2016-09-14] MEDS: FUROSEMIDE 40 MG TAB PO SCH (09:00)
[2016-09-14] MEDS: LACTOBACILLUS RHAMNOSUS GG 1 EACH CAP PO SCH (09:00)
[2016-09-14] MEDS: DOCUSATE SODIUM 100 MG GELCAP PO SCH ×2 (09:00→20:29)
[2016-09-14] MEDS: Z-GUARD PASTE TP SCH ×2 (09:00→20:38)
[2016-09-14] MEDS: THERAHONEY GEL 42.5 GM TP SCH (13:34)
[2016-09-14] MEDS: HYDROcodone/APAP 10/325 MG 1 TAB TAB PO PRN (13:35)
[2016-09-14 16:00] VITALS: BP 120/66
[2016-09-14] MEDS: MORPHINE SULFATE 2 MG/ML SYR IVP PRN ×2 (16:25→20:36)
[2016-09-14] MEDS: ATORVASTATIN 20 MG TAB PO SCH (20:28)
[2016-09-14] MEDS: MONTELUKAST SODIUM 10 MG TAB PO SCH (20:29)
[2016-09-14] MEDS: MIRTAZAPINE 15 MG TAB PO SCH (20:29)
[2016-09-14 20:33] VITALS: BP 108/70
[2016-09-14] MEDS: THERAHONEY GEL 42.5 GM TP PRN (22:22)
[2016-09-15] VITALS: BP 91/55
[2016-09-15 04:16] VITALS: BP 151/75
[2016-09-15] MEDS: MORPHINE SULFATE 2 MG/ML SYR IVP PRN (04:27)
[2016-09-15] MEDS: PANTOPRAZOLE 40 MG TABEC PO SCH (05:50)
[2016-09-15] MEDS: LEVOTHYROXINE 0.1 MG, LEVOTHYROXINE 0.025 MG PO SCH ×2 (05:50)
[2016-09-15] MEDS: FERROUS SULFATE 325 MG TABEC PO SCH ×2 (06:33→16:23)
[2016-09-15] MEDS ORDERED: oxyCODONE/APAP 5/325 MG 1 TAB TAB PO PRN ×2 (07:25→21:30)
[2016-09-15 08:00] VITALS: BP 134/83
[2016-09-15] MEDS: LACTOBACILLUS RHAMNOSUS GG 1 EACH CAP PO SCH (09:37)
[2016-09-15] MEDS: FUROSEMIDE 40 MG TAB PO SCH (09:37)
[2016-09-15] MEDS: GABAPENTIN 300 MG CAP PO SCH ×3 (09:37→16:23)
[2016-09-15] MEDS: PHENYTOIN 100 MG CAPER PO SCH ×3 (09:37→16:23)
[2016-09-15] MEDS: DOCUSATE SODIUM 100 MG GELCAP PO SCH ×2 (09:37→20:49)
[2016-09-15] MEDS: ASCORBIC ACID 500 MG TAB PO SCH (09:38)
[2016-09-15] MEDS: MULTIVITAMIN 1 TAB PO SCH (09:38)
[2016-09-15] MEDS: RIVAROXABAN 10 MG TAB PO SCH (09:43)
[2016-09-15] MEDS: Z-GUARD PASTE TP SCH ×2 (09:44→20:50)
[2016-09-15] MEDS: SKINTEGRITY HYDROGEL TP SCH (09:44)
[2016-09-15] MEDS: THERAHONEY GEL 42.5 GM TP SCH (12:10)
[2016-09-15] MEDS ORDERED: oxyCODONE/APAP 5/325 MG 1 TAB TAB PO SCH (15:34)
[2016-09-15 16:00] VITALS: BP 105/71
[2016-09-15] MEDS ORDERED: KETOROLAC 30 MG/ML VIAL IVP SCH (17:27)
[2016-09-15] MEDS: KETOROLAC 30 MG/ML VIAL IVP SCH ×2 (17:41→17:46)
[2016-09-15] MEDS: ATORVASTATIN 20 MG TAB PO SCH (20:47)
[2016-09-15] MEDS: MIRTAZAPINE 15 MG TAB PO SCH (20:48)
[2016-09-15] MEDS: MONTELUKAST SODIUM 10 MG TAB PO SCH (20:48)
[2016-09-15] MEDS ORDERED: KETOROLAC 15 MG/ML VIAL IM PRN (21:10)
[2016-09-16] VITALS: BP 91/56
[2016-09-16] MEDS: LEVOTHYROXINE 0.1 MG, LEVOTHYROXINE 0.025 MG PO SCH ×2 (05:58)
[2016-09-16] MEDS: PANTOPRAZOLE 40 MG TABEC PO SCH (05:58)
[2016-09-16] MEDS: FERROUS SULFATE 325 MG TABEC PO SCH ×2 (06:45→16:30)
[2016-09-16 08:00] VITALS: BP 125/60
[2016-09-16] MEDS ORDERED: KETOROLAC 15 MG/ML VIAL IVP SCH ×2 (08:00→14:00)
[2016-09-16] MEDS: RIVAROXABAN 10 MG TAB PO SCH ×2 (08:00→20:25)
[2016-09-16] MEDS: MULTIVITAMIN 1 TAB PO SCH (08:00)
[2016-09-16] MEDS: DOCUSATE SODIUM 100 MG GELCAP PO SCH ×2 (09:00→20:20)
[2016-09-16] MEDS: GABAPENTIN 300 MG CAP PO SCH ×3 (09:00→17:00)
[2016-09-16] MEDS: ASCORBIC ACID 500 MG TAB PO SCH (09:00)
[2016-09-16] MEDS: FUROSEMIDE 40 MG TAB PO SCH ×2 (09:00→20:18)
[2016-09-16] MEDS: PHENYTOIN 100 MG CAPER PO SCH ×3 (09:00→17:00)
[2016-09-16] MEDS: LACTOBACILLUS RHAMNOSUS GG 1 EACH CAP PO SCH (09:00)
[2016-09-16] MEDS: Z-GUARD PASTE TP SCH ×2 (10:27→20:26)
[2016-09-16] MEDS: SKINTEGRITY HYDROGEL TP SCH (10:27)
[2016-09-16] MEDS: KETOROLAC 15 MG/ML VIAL IVP PRN ×2 (13:59→20:11)
[2016-09-16] MEDS: THERAHONEY GEL 42.5 GM TP SCH (14:03)
[2016-09-16] MEDS: MONTELUKAST SODIUM 10 MG TAB PO SCH (20:18)
[2016-09-16] MEDS: MIRTAZAPINE 15 MG TAB PO SCH (20:18)
[2016-09-16] MEDS: ATORVASTATIN 20 MG TAB PO SCH (20:18)
[2016-09-17] VITALS: BP 115/62
[2016-09-17] MEDS: KETOROLAC 15 MG/ML VIAL IVP PRN ×4 (02:43→23:03)
[2016-09-17] MEDS: diphenhydrAMINE 50 MG CAP PO PRN (03:35)
[2016-09-17] MEDS: PANTOPRAZOLE 40 MG TABEC PO SCH (06:30)
[2016-09-17] MEDS: LEVOTHYROXINE 0.1 MG, LEVOTHYROXINE 0.025 MG PO SCH ×2 (06:30)
[2016-09-17] MEDS: FERROUS SULFATE 325 MG TABEC PO SCH ×2 (06:48→16:30)
[2016-09-17] MEDS: MULTIVITAMIN 1 TAB PO SCH (08:00)
[2016-09-17] MEDS: DOCUSATE SODIUM 100 MG GELCAP PO SCH ×2 (09:00→20:48)
[2016-09-17] MEDS: GABAPENTIN 300 MG CAP PO SCH ×3 (09:00→16:36)
[2016-09-17] MEDS: ASCORBIC ACID 500 MG TAB PO SCH (09:00)
[2016-09-17] MEDS: LACTOBACILLUS RHAMNOSUS GG 1 EACH CAP PO SCH (09:00)
[2016-09-17] MEDS: SKINTEGRITY HYDROGEL TP SCH (09:00)
[2016-09-17] MEDS: PHENYTOIN 100 MG CAPER PO SCH ×3 (09:00→16:36)
[2016-09-17 11:24] VITALS: BP 131/82
[2016-09-17] MEDS: Z-GUARD PASTE TP SCH ×2 (11:39→20:49)
[2016-09-17] MEDS: THERAHONEY GEL 42.5 GM TP SCH (11:39)
[2016-09-17] MEDS ORDERED: diphenhydrAMINE 50 MG/ML VIAL IVP SCH (14:00)
[2016-09-17] MEDS ORDERED: HALOPERIDOL IM 5 MG/ML VIAL IM SCH (14:00)
[2016-09-17 16:00] VITALS: BP 151/70
[2016-09-17] MEDS: FUROSEMIDE 40 MG TAB PO SCH (20:42)
[2016-09-17] MEDS: MONTELUKAST SODIUM 10 MG TAB PO SCH (20:42)
[2016-09-17] MEDS: ATORVASTATIN 20 MG TAB PO SCH (20:42)
[2016-09-17] MEDS: MIRTAZAPINE 15 MG TAB PO SCH (20:42)
[2016-09-17] MEDS: RIVAROXABAN 10 MG TAB PO SCH (20:48)
[2016-09-18] VITALS: BP 150/70
[2016-09-18] MEDS ORDERED: LORazepam 2 MG/ML VIAL ONE ×2 (03:20→03:26)
[2016-09-18 04:00] VITALS: BP 147/72
[2016-09-18] MEDS ORDERED: LORazepam 2 MG/ML VIAL IVP STA ×2 (04:09)
[2016-09-18] MEDS ORDERED: LORazepam 2 MG/ML VIAL IVP PRN (04:25)
[2016-09-18] MEDS: LEVOTHYROXINE 0.1 MG, LEVOTHYROXINE 0.025 MG PO SCH ×2 (05:40)
[2016-09-18] MEDS: LORazepam 1 MG TAB PO SCH ×3 (05:41→21:44)
[2016-09-18] MEDS: PANTOPRAZOLE 40 MG TABEC PO SCH (05:41)
[2016-09-18] MEDS: FERROUS SULFATE 325 MG TABEC PO SCH ×2 (05:48→17:16)
[2016-09-18 06:36] LABS: PHENYTOIN (DILANTIN) 14.7 ug/ml (10.0-20.0)
[2016-09-18 08:00] VITALS: BP 104/52
[2016-09-18] MEDS: MULTIVITAMIN 1 TAB PO SCH (08:00)
[2016-09-18] MEDS: DOCUSATE SODIUM 100 MG GELCAP PO SCH ×2 (08:47→21:30)
[2016-09-18] MEDS: LACTOBACILLUS RHAMNOSUS GG 1 EACH CAP PO SCH (08:47)
[2016-09-18] MEDS: ASCORBIC ACID 500 MG TAB PO SCH (08:48)
[2016-09-18] MEDS: Z-GUARD PASTE TP SCH ×2 (08:48→21:38)
[2016-09-18] MEDS: GABAPENTIN 300 MG CAP PO SCH ×3 (08:48→17:16)
[2016-09-18] MEDS: PHENYTOIN 100 MG CAPER PO SCH ×3 (08:48→17:16)
[2016-09-18] MEDS: SKINTEGRITY HYDROGEL TP SCH (08:48)
[2016-09-18 12:00] VITALS: BP 139/76
[2016-09-18] MEDS: THERAHONEY GEL 42.5 GM TP SCH (12:37)
[2016-09-18] MEDS: KETOROLAC 15 MG/ML VIAL IVP PRN ×2 (12:43→21:46)
[2016-09-18 16:00] VITALS: BP 112/68
[2016-09-18 20:00] VITALS: BP 110/68
[2016-09-18] MEDS: ATORVASTATIN 20 MG TAB PO SCH (21:28)
[2016-09-18] MEDS: FUROSEMIDE 40 MG TAB PO SCH (21:29)
[2016-09-18] MEDS: MIRTAZAPINE 15 MG TAB PO SCH (21:30)
[2016-09-18] MEDS: MONTELUKAST SODIUM 10 MG TAB PO SCH (21:31)
[2016-09-18] MEDS: RIVAROXABAN 10 MG TAB PO SCH (21:37)
[2016-09-19] VITALS: BP 90/55
[2016-09-19 04:00] VITALS: BP 128/60
[2016-09-19] MEDS: LORazepam 1 MG TAB PO SCH ×3 (05:00→23:02)
[2016-09-19] MEDS: PANTOPRAZOLE 40 MG TABEC PO SCH (06:30)
[2016-09-19] MEDS: LEVOTHYROXINE 0.1 MG, LEVOTHYROXINE 0.025 MG PO SCH ×2 (06:30)
[2016-09-19] MEDS: FERROUS SULFATE 325 MG TABEC PO SCH ×2 (06:34→16:30)
[2016-09-19 08:00] VITALS: BP 122/62
[2016-09-19] MEDS: DOCUSATE SODIUM 100 MG GELCAP PO SCH ×2 (08:45→23:02)
[2016-09-19] MEDS: MULTIVITAMIN 1 TAB PO SCH (08:49)
[2016-09-19] MEDS: GABAPENTIN 300 MG CAP PO SCH ×3 (08:50→17:00)
[2016-09-19] MEDS: LACTOBACILLUS RHAMNOSUS GG 1 EACH CAP PO SCH (08:50)
[2016-09-19] MEDS: ASCORBIC ACID 500 MG TAB PO SCH (08:50)
[2016-09-19] MEDS: PHENYTOIN 100 MG CAPER PO SCH ×3 (08:51→17:00)
[2016-09-19] MEDS: Z-GUARD PASTE TP SCH ×2 (08:53→21:39)
[2016-09-19] MEDS: SKINTEGRITY HYDROGEL TP SCH (08:53)
[2016-09-19] MEDS: KETOROLAC 15 MG/ML VIAL IVP PRN (09:03)
[2016-09-19 12:00] VITALS: BP 130/73
[2016-09-19] MEDS ORDERED: LORazepam 2 MG/ML VIAL IVP PRN (12:10)
[2016-09-19] MEDS ORDERED: LORazepam 2 MG/ML VIAL IVP SCH (13:22)
[2016-09-19] MEDS: THERAHONEY GEL 42.5 GM TP SCH (13:34)
[2016-09-19] MEDS: LORazepam 2 MG/ML VIAL IM/IVP PRN ×2 (15:37→20:44)
[2016-09-19 16:00] VITALS: BP 110/67
[2016-09-19 16:36] LABS: ALBUMIN 3.2 g/dL (3.4-5.0); ANION GAP 9.3 (8-16); CALCIUM 9.6 mg/dL (8.5-10.1); CARBON DIOXIDE 32.2 mmol/L (21-32); CREATININE 0.6 mg/dL (0.6-1.3); POTASSIUM 4.5 mmol/L (3.5-5.1); TOTAL BILIRUBIN 0.3 mg/dL (0.0-1.0); TOTAL PROTEIN, SERUM 7.5 g/dL (6.4-8.2)
[2016-09-19 16:54] LABS: PHENYTOIN (DILANTIN) 18.2 ug/ml (10.0-20.0)
[2016-09-19] MEDS ORDERED: HYDROmorphone 1 MG/ML AMP IM SCH (18:55)
[2016-09-19 20:00] VITALS: BP 113/67
[2016-09-19] MEDS ORDERED: KETOROLAC 15 MG/ML VIAL IM ONE (20:15)
[2016-09-19 20:26] LABS: BASOPHILS # (AUTO) 0.1 K/uL (0.00-0.22); BASOPHILS % (AUTO) 1.9 % (0.0-2.0); EOSINOPHILS # (AUTO) 0.3 K/uL (0-0.4); EOSINOPHILS % (AUTO) 4.9 % (0.0-4.0); HEMATOCRIT 42.7 % (36-48); LYMPHOCYTES # (AUTO) 1.7 K/uL (2.5-16.5); LYMPHOCYTES % (AUTO) 25.1 % (20.5-51.1); MEAN CORPUSCULAR HEMOGLOBIN 29 pg (27-31); MEAN CORPUSCULAR HGB CONC 33 g/dL (33-37); MEAN CORPUSCULAR VOLUME 90 fL (80-94); MONOCYTES # (AUTO) 0.6 K/uL (0.8-1.0); MONOCYTES % (AUTO) 8.5 % (1.7-9.3); NEUTROPHILS # (AUTO) 4.3 K/uL (1.8-7.7); NEUTROPHILS % (AUTO) 59.6 % (42.2-75.2); PLATELET COUNT (AUTO) 135 K/uL (140-450); RED BLOOD CELL COUNT(AUTO) 4.76 MIL/uL (4.20-5.40); RED CELL DISTRIBUTION WIDTH 14.4 % (11.6-13.7)
[2016-09-19] MEDS ORDERED: KETOROLAC 15 MG/ML VIAL ONE (20:27)
[2016-09-19] MEDS ORDERED: levETIRAcetam 500 MG TAB PO SCH (21:00)
[2016-09-19] MEDS: FUROSEMIDE 40 MG TAB PO SCH (23:03)
[2016-09-19] MEDS: ATORVASTATIN 20 MG TAB PO SCH (23:03)
[2016-09-19] MEDS: RIVAROXABAN 10 MG TAB PO SCH (23:03)
[2016-09-19] MEDS: MIRTAZAPINE 15 MG TAB PO SCH (23:04)
[2016-09-19] MEDS: MONTELUKAST SODIUM 10 MG TAB PO SCH (23:04)
[2016-09-19] MEDS ORDERED: levETIRAcetam 1,000 MG in NACL 0.9% 100 ML IV SCH (23:05)
[2016-09-19] MEDS ORDERED: levETIRAcetam 100 MG/ML VIAL IV ONE (23:52)
[2016-09-20] VITALS (7 sets, daily range): BP systolic 96–140; BP diastolic 51–78
[2016-09-20] MEDS: LORazepam 1 MG TAB PO SCH ×4 (05:00→21:00)
[2016-09-20] MEDS: LEVOTHYROXINE 0.1 MG, LEVOTHYROXINE 0.025 MG PO SCH ×2 (06:58)
[2016-09-20] MEDS: FERROUS SULFATE 325 MG TABEC PO SCH ×2 (06:58→17:00)
[2016-09-20] MEDS: PANTOPRAZOLE 40 MG TABEC PO SCH (06:58)
[2016-09-20] MEDS: KETOROLAC 15 MG/ML VIAL IVP PRN ×2 (07:18→17:03)
[2016-09-20] MEDS: MULTIVITAMIN 1 TAB PO SCH (08:00)
[2016-09-20] MEDS: GABAPENTIN 300 MG CAP PO SCH ×3 (08:45→17:00)
[2016-09-20] MEDS: PHENYTOIN 100 MG CAPER PO SCH ×3 (08:45→17:00)
[2016-09-20] MEDS: SKINTEGRITY HYDROGEL TP SCH (09:00)
[2016-09-20] MEDS: Z-GUARD PASTE TP SCH ×2 (09:00→22:24)
[2016-09-20] MEDS: levETIRAcetam 500 MG in NACL 0.9% 100 ML IV SCH ×2 (09:05→20:23)
[2016-09-20] MEDS: LORazepam 2 MG/ML VIAL IM/IVP PRN (11:08)
[2016-09-20] MEDS ORDERED: LORazepam 2 MG/ML VIAL IVP SCH (11:25)
[2016-09-20] MEDS: DOCUSATE SODIUM 100 MG GELCAP PO SCH ×2 (12:46→21:00)
[2016-09-20] MEDS: LACTOBACILLUS RHAMNOSUS GG 1 EACH CAP PO SCH (12:46)
[2016-09-20] MEDS: ASCORBIC ACID 500 MG TAB PO SCH (12:47)
[2016-09-20] MEDS: THERAHONEY GEL 42.5 GM TP SCH (13:00)
[2016-09-20] MEDS ORDERED: PHENobarbital 130 MG/ML VIAL IV ONE (20:40)
[2016-09-20] MEDS ORDERED: NACL 0.9% IV ONE (20:55)
[2016-09-20] MEDS ORDERED: PHENOBARBITAL IV ONE (20:55)
[2016-09-20] MEDS: MONTELUKAST SODIUM 10 MG TAB PO SCH (21:00)
[2016-09-20] MEDS: FUROSEMIDE 40 MG TAB PO SCH (21:00)
[2016-09-20] MEDS: RIVAROXABAN 10 MG TAB PO SCH (21:00)
[2016-09-20] MEDS: MIRTAZAPINE 15 MG TAB PO SCH (21:00)
[2016-09-20] MEDS: ATORVASTATIN 20 MG TAB PO SCH (21:00)
[2016-09-20] MEDS ORDERED: PHENobarbital 130 MG/ML VIAL ONE (22:01)
[2016-09-21] VITALS (7 sets, daily range): BP systolic 101–148; BP diastolic 45–97
[2016-09-21] MEDS: LORazepam 1 MG TAB PO SCH ×3 (05:00→21:00)
[2016-09-21] MEDS: PANTOPRAZOLE 40 MG TABEC PO SCH (06:14)
[2016-09-21] MEDS: LEVOTHYROXINE 0.1 MG, LEVOTHYROXINE 0.025 MG PO SCH ×2 (06:14)
[2016-09-21] MEDS: MULTIVITAMIN 1 TAB PO SCH (07:06)
[2016-09-21] MEDS: FERROUS SULFATE 325 MG TABEC PO SCH ×2 (07:06→16:30)
[2016-09-21] MEDS: LACTOBACILLUS RHAMNOSUS GG 1 EACH CAP PO SCH (09:00)
[2016-09-21] MEDS: PHENYTOIN 100 MG CAPER PO SCH ×2 (09:00→13:00)
[2016-09-21] MEDS: GABAPENTIN 300 MG CAP PO SCH ×2 (09:00→13:00)
[2016-09-21] MEDS: DOCUSATE SODIUM 100 MG GELCAP PO SCH ×2 (09:00→21:00)
[2016-09-21] MEDS: ASCORBIC ACID 500 MG TAB PO SCH (09:00)
[2016-09-21] MEDS: levETIRAcetam 500 MG in NACL 0.9% 100 ML IV SCH ×3 (09:46→22:44)
[2016-09-21] MEDS ORDERED: ACETAMINOPHEN 325 MG TAB PO PRN (17:35)
[2016-09-21] MEDS: SKINTEGRITY HYDROGEL TP SCH (17:40)
[2016-09-21] MEDS: THERAHONEY GEL 42.5 GM TP SCH (17:41)
[2016-09-21] MEDS: KETOROLAC 15 MG/ML VIAL IVP PRN (18:40)
[2016-09-21] MEDS: MIRTAZAPINE 15 MG TAB PO SCH (21:00)
[2016-09-21] MEDS: FUROSEMIDE 40 MG TAB PO SCH (21:00)
[2016-09-21] MEDS: RIVAROXABAN 10 MG TAB PO SCH (21:00)
[2016-09-21] MEDS: ATORVASTATIN 20 MG TAB PO SCH (21:00)
[2016-09-21] MEDS: MONTELUKAST SODIUM 10 MG TAB PO SCH (21:00)
[2016-09-21] MEDS: Z-GUARD PASTE TP SCH (22:09)
[2016-09-21] MEDS: LORazepam 2 MG/ML VIAL IM/IVP PRN (22:44)
[2016-09-22] VITALS (7 sets, daily range): BP systolic 112–133; BP diastolic 56–76
[2016-09-22] MEDS: KETOROLAC 15 MG/ML VIAL IVP PRN ×4 (00:32→20:08)
[2016-09-22] MEDS ORDERED: HYDROcodone/APAP 7.5/325 MG 1 TAB PO PRN (00:45)
[2016-09-22] MEDS: LORazepam 2 MG/ML VIAL IM/IVP PRN ×2 (02:04→15:17)
[2016-09-22] MEDS: LORazepam 1 MG TAB PO SCH ×3 (05:00→20:16)
[2016-09-22] MEDS: PANTOPRAZOLE 40 MG TABEC PO SCH (06:44)
[2016-09-22] MEDS: LEVOTHYROXINE 0.1 MG, LEVOTHYROXINE 0.025 MG PO SCH ×2 (06:44)
[2016-09-22] MEDS: FERROUS SULFATE 325 MG TABEC PO SCH ×2 (06:45→16:30)
[2016-09-22] MEDS: MULTIVITAMIN 1 TAB PO SCH (08:00)
[2016-09-22] MEDS ORDERED: PHENYTOIN 100 MG CAPER PO SCH (09:00)
[2016-09-22] MEDS: GABAPENTIN 300 MG CAP PO SCH ×3 (09:17→17:00)
[2016-09-22] MEDS: ASCORBIC ACID 500 MG TAB PO SCH (09:17)
[2016-09-22] MEDS: LACTOBACILLUS RHAMNOSUS GG 1 EACH CAP PO SCH (09:17)
[2016-09-22] MEDS: DOCUSATE SODIUM 100 MG GELCAP PO SCH ×2 (09:18→20:16)
[2016-09-22] MEDS: levETIRAcetam 500 MG in NACL 0.9% 100 ML IV SCH ×2 (09:18→20:09)
[2016-09-22] MEDS: PHENYTOIN IV SCH ×3 (09:18→17:46)
[2016-09-22] MEDS: NACL 0.9% IV SCH ×3 (09:18→17:46)
[2016-09-22] MEDS: SKINTEGRITY HYDROGEL TP SCH (09:19)
[2016-09-22] MEDS: Z-GUARD PASTE TP SCH ×2 (09:19→20:21)
[2016-09-22] MEDS ORDERED: MORPHINE TAB ER 15 MG TABER PO SCH ×2 (09:25→21:00)
[2016-09-22] MEDS ORDERED: MORPHINE SULFATE ORAL SOLN 2 MG/ML UDC PO PRN (09:45)
[2016-09-22] MEDS: PHENobarbital 30 MG TAB PO SCH ×2 (13:08→17:00)
[2016-09-22] MEDS: THERAHONEY GEL 42.5 GM TP SCH (13:18)
[2016-09-22] MEDS: FUROSEMIDE 40 MG TAB PO SCH (20:15)
[2016-09-22] MEDS: ATORVASTATIN 20 MG TAB PO SCH (20:16)
[2016-09-22] MEDS: MONTELUKAST SODIUM 10 MG TAB PO SCH (20:16)
[2016-09-22] MEDS: MIRTAZAPINE 15 MG TAB PO SCH (20:16)
[2016-09-22] MEDS: RIVAROXABAN 10 MG TAB PO SCH (21:27)
[2016-09-23] VITALS: BP 108/70
[2016-09-23] MEDS ORDERED: PHENYTOIN 1,000 MG in NACL 0.9% 100 ML IV ONE ×2
[2016-09-23] MEDS: KETOROLAC 15 MG/ML VIAL IVP PRN ×3 (02:25→20:14)
[2016-09-23 04:00] VITALS: BP 104/55
[2016-09-23] MEDS: LORazepam 1 MG TAB PO SCH ×3 (05:27→20:14)
[2016-09-23] MEDS: PANTOPRAZOLE 40 MG TABEC PO SCH ×2 (06:30→06:32)
[2016-09-23] MEDS: FERROUS SULFATE 325 MG TABEC PO SCH ×3 (06:32→16:30)
[2016-09-23 09:00] VITALS: BP 91/44
[2016-09-23] MEDS: SKINTEGRITY HYDROGEL TP SCH (09:00)
[2016-09-23] MEDS: Z-GUARD PASTE TP SCH ×2 (09:00→20:34)
[2016-09-23] MEDS: PHENobarbital 30 MG TAB PO SCH ×3 (09:40→17:00)
[2016-09-23] MEDS: levETIRAcetam 500 MG in NACL 0.9% 100 ML IV SCH ×2 (09:40→21:14)
[2016-09-23] MEDS: LACTOBACILLUS RHAMNOSUS GG 1 EACH CAP PO SCH (09:40)
[2016-09-23] MEDS: DOCUSATE SODIUM 100 MG GELCAP PO SCH ×2 (09:41→20:33)
[2016-09-23] MEDS: GABAPENTIN 300 MG CAP PO SCH ×3 (09:41→17:00)
[2016-09-23] MEDS: ASCORBIC ACID 500 MG TAB PO SCH (09:41)
[2016-09-23] MEDS: MULTIVITAMIN 1 TAB PO SCH (09:41)
[2016-09-23] MEDS: PHENYTOIN IV SCH (10:28)
[2016-09-23] MEDS: NACL 0.9% IV SCH (10:28)
[2016-09-23] MEDS ORDERED: levETIRAcetam 500 MG TAB PO SCH ×3 (10:40→21:00)
[2016-09-23 12:00] VITALS: BP 97/48
[2016-09-23] MEDS ORDERED: MAG SULF 2000 MG/WATER PREMIX 50 ML IV SCH (12:00)
[2016-09-23] MEDS ORDERED: PHENYTOIN 100 MG CAPER PO SCH (13:00)
[2016-09-23] MEDS: THERAHONEY GEL 42.5 GM TP SCH (13:00)
[2016-09-23 16:00] VITALS: BP 104/74
[2016-09-23 20:00] VITALS: BP 101/48
[2016-09-23] MEDS: FUROSEMIDE 40 MG TAB PO SCH (20:33)
[2016-09-23] MEDS: ATORVASTATIN 20 MG TAB PO SCH (20:33)
[2016-09-23] MEDS: RIVAROXABAN 10 MG TAB PO SCH (20:34)
[2016-09-23] MEDS: MIRTAZAPINE 15 MG TAB PO SCH (20:34)
[2016-09-23] MEDS: MONTELUKAST SODIUM 10 MG TAB PO SCH (20:34)
[2016-09-23] MEDS ORDERED: levETIRAcetam 100 MG/ML VIAL IV ONE (21:04)
[2016-09-24] VITALS: BP 110/56
[2016-09-24 04:00] VITALS: BP 106/50
[2016-09-24] MEDS: PANTOPRAZOLE 40 MG TABEC PO SCH (06:02)
[2016-09-24] MEDS: LORazepam 1 MG TAB PO SCH ×3 (06:02→20:52)
[2016-09-24] MEDS: FERROUS SULFATE 325 MG TABEC PO SCH ×2 (07:21→16:30)
[2016-09-24 07:42] VITALS: BP 108/63
[2016-09-24] MEDS: MULTIVITAMIN 1 TAB PO SCH (08:00)
[2016-09-24] MEDS: KETOROLAC 15 MG/ML VIAL IVP PRN ×3 (08:37→23:53)
[2016-09-24] MEDS: LACTOBACILLUS RHAMNOSUS GG 1 EACH CAP PO SCH (09:00)
[2016-09-24] MEDS: GABAPENTIN 300 MG CAP PO SCH ×3 (09:00→17:00)
[2016-09-24] MEDS: ASCORBIC ACID 500 MG TAB PO SCH (09:00)
[2016-09-24] MEDS: Z-GUARD PASTE TP SCH ×2 (09:00→21:05)
[2016-09-24] MEDS: PHENobarbital 30 MG TAB PO SCH ×3 (09:00→17:00)
[2016-09-24] MEDS: DOCUSATE SODIUM 100 MG GELCAP PO SCH ×2 (09:00→20:53)
[2016-09-24] MEDS: levETIRAcetam 500 MG in NACL 0.9% 100 ML IV SCH ×2 (09:35→21:04)
[2016-09-24] MEDS: PHENYTOIN IV SCH ×3 (10:30→17:51)
[2016-09-24] MEDS: NACL 0.9% IV SCH ×3 (10:30→17:51)
[2016-09-24 12:00] VITALS: BP 104/59
[2016-09-24] MEDS ORDERED: PHENYTOIN 1,000 MG in NACL 0.9% 100 ML IV ONE (13:00)
[2016-09-24] MEDS ORDERED: PHENYTOIN 1,000 MG in NACL 0.9% 100 ML IV SCH (13:00)
[2016-09-24] MEDS: THERAHONEY GEL 42.5 GM TP SCH (13:00)
[2016-09-24 16:00] VITALS: BP 113/63
[2016-09-24 20:00] VITALS: BP 134/62
[2016-09-24] MEDS: ATORVASTATIN 20 MG TAB PO SCH (20:52)
[2016-09-24] MEDS: MIRTAZAPINE 15 MG TAB PO SCH (20:52)
[2016-09-24] MEDS: MONTELUKAST SODIUM 10 MG TAB PO SCH (20:52)
[2016-09-24] MEDS: FUROSEMIDE 40 MG TAB PO SCH (20:52)
[2016-09-24] MEDS: RIVAROXABAN 10 MG TAB PO SCH (21:28)
[2016-09-25] VITALS: BP 128/68
[2016-09-25 04:00] VITALS: BP 138/71
[2016-09-25] MEDS: LORazepam 1 MG TAB PO SCH ×2 (05:00→12:50)
[2016-09-25] MEDS: PANTOPRAZOLE 40 MG TABEC PO SCH (06:30)
[2016-09-25] MEDS: FERROUS SULFATE 325 MG TABEC PO SCH ×2 (06:51→16:30)
[2016-09-25 08:00] VITALS: BP 140/64
[2016-09-25] MEDS: ASCORBIC ACID 500 MG TAB PO SCH (08:37)
[2016-09-25] MEDS: DOCUSATE SODIUM 100 MG GELCAP PO SCH ×2 (08:37→21:23)
[2016-09-25] MEDS: LACTOBACILLUS RHAMNOSUS GG 1 EACH CAP PO SCH (08:37)
[2016-09-25] MEDS: PHENobarbital 30 MG TAB PO SCH ×3 (08:37→17:00)
[2016-09-25] MEDS: GABAPENTIN 300 MG CAP PO SCH ×3 (08:38→17:00)
[2016-09-25] MEDS: MULTIVITAMIN 1 TAB PO SCH (08:38)
[2016-09-25] MEDS: KETOROLAC 15 MG/ML VIAL IVP PRN (08:41)
[2016-09-25] MEDS: PHENYTOIN IV SCH ×2 (08:47→12:50)
[2016-09-25] MEDS: NACL 0.9% IV SCH ×2 (08:47→12:50)
[2016-09-25] MEDS: Z-GUARD PASTE TP SCH ×2 (08:50→21:00)
[2016-09-25] MEDS: levETIRAcetam 500 MG in NACL 0.9% 100 ML IV SCH (09:43)
[2016-09-25 12:00] VITALS: BP 114/67
[2016-09-25] MEDS: THERAHONEY GEL 42.5 GM TP SCH (13:21)
[2016-09-25] MEDS: diphenhydrAMINE 50 MG CAP PO PRN (15:23)
[2016-09-25] MEDS ORDERED: LORazepam 2 MG/ML VIAL IM/IVP PRN (15:55)
[2016-09-25 16:00] VITALS: BP 140/68
[2016-09-25] MEDS: PHENYTOIN 100 MG CAPER PO SCH (17:00)
[2016-09-25 20:00] VITALS: BP 130/70
[2016-09-25] MEDS ORDERED: ARIPiprazole 10 MG TAB PO SCH (21:00)
[2016-09-25] MEDS ORDERED: QUEtiapine FUMARATE 25 MG TAB PO SCH (21:00)
[2016-09-25] MEDS: ATORVASTATIN 20 MG TAB PO SCH (21:18)
[2016-09-25] MEDS: levETIRAcetam 500 MG TAB PO SCH (21:19)
[2016-09-25] MEDS: MIRTAZAPINE 15 MG TAB PO SCH (21:19)
[2016-09-25] MEDS: RIVAROXABAN 10 MG TAB PO SCH (21:20)
[2016-09-25] MEDS: FUROSEMIDE 40 MG TAB PO SCH (21:22)
[2016-09-25] MEDS: MONTELUKAST SODIUM 10 MG TAB PO SCH (21:23)
[2016-09-25] MEDS: KETOROLAC 30 MG/ML VIAL IM PRN (23:55)
[2016-09-26] VITALS: BP 147/81
[2016-09-26 04:00] VITALS: BP 13/80
[2016-09-26] MEDS: PANTOPRAZOLE 40 MG TABEC PO SCH (05:47)
[2016-09-26] MEDS: FERROUS SULFATE 325 MG TABEC PO SCH (05:48)
[2016-09-26 08:00] VITALS: BP 117/73
[2016-09-26] MEDS: levETIRAcetam 500 MG TAB PO SCH (08:52)
[2016-09-26] MEDS: LACTOBACILLUS RHAMNOSUS GG 1 EACH CAP PO SCH (08:52)
[2016-09-26] MEDS: GABAPENTIN 300 MG CAP PO SCH ×2 (08:52→12:37)
[2016-09-26] MEDS: PHENYTOIN 100 MG CAPER PO SCH ×2 (08:52→12:37)
[2016-09-26] MEDS: PHENobarbital 30 MG TAB PO SCH ×2 (08:52→12:36)
[2016-09-26] MEDS: ASCORBIC ACID 500 MG TAB PO SCH (08:52)
[2016-09-26] MEDS: MULTIVITAMIN 1 TAB PO SCH (08:53)
[2016-09-26] MEDS: DOCUSATE SODIUM 100 MG GELCAP PO SCH (08:53)
[2016-09-26] MEDS: Z-GUARD PASTE TP SCH (08:54)
[2016-09-26] MEDS: KETOROLAC 30 MG/ML VIAL IM PRN (09:00)
[2016-09-26] MEDS ORDERED: ARIPiprazole 10 MG TAB PO SCH ×2 (09:00)
[2016-09-26] MEDS ORDERED: MULT-405 PO (09:04)
[2016-09-26] MEDS ORDERED: ARIP10TA28 PO (09:04)
[2016-09-26] MEDS ORDERED: MIRT15TA4 PO (09:04)
[2016-09-26] MEDS ORDERED: BEN50 PO (09:04)
[2016-09-26] MEDS ORDERED: PANT40EC28 PO (09:04)
[2016-09-26] MEDS ORDERED: QUET25TA46 PO (09:04)
[2016-09-26] MEDS ORDERED: KEP500 PO (09:04)
[2016-09-26] MEDS ORDERED: ACET-1182 PO (09:04)
[2016-09-26] MEDS ORDERED: PHEN-1438 PO (09:04)
[2016-09-26] MEDS ORDERED: BASE TP ×2 (09:04)
[2016-09-26] MEDS ORDERED: ATOR20TA40 PO (09:04)
[2016-09-26] MEDS ORDERED: LACT10CA PO (09:04)
[2016-09-26] MEDS ORDERED: XAR10 PO (09:20)
[2016-09-26 12:00] VITALS: BP 144/74
[2016-09-26] MEDS: THERAHONEY GEL 42.5 GM TP SCH (12:37)
== END 2016-09-26 13:30 | DRG 951 ==
LOC: MED 23:14 → MTU 08-22 07:17
PROVIDERS: ADMIT Family Medicine; ATTEND Family Medicine
PROC: 0QB10ZZ Excision of Sacrum, Open Approach (ICD-10-PCS; principal; 2016-08-25 13:00)
PROC: 0JBQ0ZZ Excision of Right Foot Subcutaneous Tissue and Fascia, Open Approach (ICD-10-PCS; 2016-09-08)
PROC: 05H433Z Insertion of Infusion Device into Left Innominate Vein, Percutaneous Approach (ICD-10-PCS; 2016-09-19)
DX: T40.601A Poisoning by unspecified narcotics, accidental (unintentional), initial encounter (principal); N17.0 Acute kidney failure with tubular necrosis; G92 Toxic encephalopathy; L89.154 Pressure ulcer of sacral region, stage 4; E44.0 Moderate protein-calorie malnutrition; E11.51 Type 2 diabetes mellitus with diabetic peripheral angiopathy without gangrene; E11.42 Type 2 diabetes mellitus with diabetic polyneuropathy; K76.89 Other specified diseases of liver; Z89.612 Acquired absence of left leg above knee; N39.0 Urinary tract infection, site not specified; G40.909 Epilepsy, unspecified, not intractable, without status epilepticus; J44.9 Chronic obstructive pulmonary disease, unspecified; E03.9 Hypothyroidism, unspecified; I10 Essential (primary) hypertension; F32.9 Major depressive disorder, single episode, unspecified; K21.0 Gastro-esophageal reflux disease with esophagitis; L89.619 Pressure ulcer of right heel, unspecified stage; Z53.29 Procedure and treatment not carried out because of patient's decision for other reasons; F17.210 Nicotine dependence, cigarettes, uncomplicated; F41.9 Anxiety disorder, unspecified; N13.2 Hydronephrosis with renal and ureteral calculous obstruction; G47.00 Insomnia, unspecified; D64.9 Anemia, unspecified; G31.84 Mild cognitive impairment of uncertain or unknown etiology; B96.4 Proteus (mirabilis) (morganii) as the cause of diseases classified elsewhere; B96.89 Other specified bacterial agents as the cause of diseases classified elsewhere; Z88.1 Allergy status to other antibiotic agents; Z88.0 Allergy status to penicillin; Z88.8 Allergy status to other drugs, medicaments and biological substances; Z91.048 Other nonmedicinal substance allergy status; Z79.899 Other long term (current) drug therapy; Z86.718 Personal history of other venous thrombosis and embolism; Z79.01 Long term (current) use of anticoagulants; I69.351 Hemiplegia and hemiparesis following cerebral infarction affecting right dominant side; Z91.14 Patient's other noncompliance with medication regimen; Y92.89 Other specified places as the place of occurrence of the external cause; Z68.23 Body mass index [BMI] 23.0-23.9, adult
CPT/HCPCS: 36415; 70450; 71010; 76536; 76770; 76856; 80048; 80053; 80184; 80185; 80305; 81001; 81025; 82550; 82948; 83605; 83735; 84484; 85025; 87070; 87081; 87086; 87186; 88304; 93005; 95816; 96365; 96366; 96375; 97140; 99285; A6248; G0480; G0482; J0713; J1165; J1170; J1200; J1630; J1642; J1644; J1885; J1953; J1956; J2001; J2060; J2250; J2270; J2310; J2405; J2560; J2704; J3010; J3475; J3490; J7030; J7060; Q0092; Q0163